=== PATIENT | female | born 1965 | race Caucasian/White ===

== ENCOUNTER → 2016-09-18 | Day surgery (SDC) | payer OTHER ==
[2016-09-12 14:12] VITALS: BMI 44.0
[~2016-09-18] VITALS: Ht 165.1 cm; Wt 121.8 kg
[~2016-09-18] MED LIST: CITA40TA4 PO; CLB100 PO; FERR325T5 PO; FERR325T51 PO; FEXO1TAB46 PO; FLNIN NAE; FLUT0.15 NAE; FURO40TA3 PO; IBUP600T44 PO; INSDGI SC; LEVO100T PO; LIDOCAINE HCL 2% 2 ML VIAL (20MG/ML) ONE; LISI-729 PO; LISI5TAB3 PO; METF1000 PO; NITR0.4S UT; NRN300 PO; NRN600 PO; NVLG SQ; NVLGI SC; OMEP40CA PO; OMEP40CA41 PO; ONDA4TAB10 SL; POTA10CA28 PO; PROPOFOL IV EMULSION 10 MG/ML 20 ML VIAL IV ONE; SIMV10TA2 PO; SODIUM CHLORIDE 0.9% 500ML 500 ML IV ONE; SPIR25TA PO; TYLOTC500 PO
[2016-09-18 09:01] VITALS: Ht 165.1 cm; Wt 121.8 kg
[2016-09-18 09:16] VITALS: TEMP 36.7
--- NOTE | 2016-09-18 09:52 | Endo History and Physical ---
History & Physical Date of Service: Sep 18, 2016. Chief Complaint: SCREENING Referring Physician: DR CABRERA History of Present Illness Screening colonoscopy. Past Medical History Diabetes, Arthritis, Asthma, Reflux, Gynecological Problems, High Cholesterol, Hypertension, Thyroid Disease, Depression Past Surgical History Hx Cardiac Surgery: No Hx Internal Defibrillator: No Hx Pacemaker: No Hx Abdominal Surgery: Yes (UMBILICAL HERNIA REPAIR, D&C, UTERINE ABLATION WITH D&C AND TUBAL LIGATION) Hx of Implantable Prosthesis: No Hx Post-Op Nausea and Vomiting: Yes (SCOPALAMINE PATCHES WORK WELL) Hx Cancer Surgery: No Hx Thoracic Surgery: No Hx Orthopedic: Yes (MASS REMOVAL RT KNEE (BENIGN), RT BIG TOE GROWTH REMOVAL) Hx Urinary Tract Surgery: No Family History Polyp Social History Smoking Status: Never Smoker Hx Substance Use: No Hx Alcohol Use: No Allergies Coded Allergies: Codeine (Unverified Allergy, Mild, FAINTING, DIZZINESS, N/V, FEVER, ) Penicillins (Unverified Allergy, Mild, HAPPENED A CHILD - PT UNSURE REACTION, 09/18/16) - "NO REAL REACTION WITH SMALL DOSES" Sulfa Drugs (Unverified Allergy, Mild, HAPPENED A CHILD - PT UNSURE REACTION, 09/18/16) Morphine (Verified Allergy, Unknown, GI UPSET, FEVER, 09/18/16) Current Medications Reported Home Medications Medications Dose Route/Sig Max Daily Dose Days Date Category Dose Instructions Synthroid (Levothyroxine Sodium) 100 Mcg Tab 100 Mcg PO QAM 09/12/16 Reported Citalopram Hydrobromide 40 Mg Tab 1 Tab PO HS 09/12/16 Reported Gabapentin 300 Mg Cap 900 Mg PO HS 02/01/15 Reported Iron Supplement (Ferrous Sulfate) 325 Mg Tab 2 Tabs PO HS 02/01/15 Reported Novolog (Insulin Aspart) Inj 40-50 Units SC SUPPER 02/01/15 Reported PER SLIDING SCALE Novolog (Insulin Aspart) Inj 5-10 Units SC BREAKFAST 02/01/15 Reported PER SLIDING SCALE Lasix (Furosemide) 40 Mg Tab 40 Mg PO BID 02/01/15 Reported Tylenol (Acetaminophen) 500 Mg Tab 1,000 Mg PO Q6H PRN 03/11/13 Reported Flonase Nasal [place] (Fluticasone Propionate) 120 Sprays/6000 Mcg Inha 2 Sprays RAJENDRA DAILY PRN 9/12/13 Reported Prilosec (Omeprazole) 40 Mg Capcr 40 Mg PO HS 03/11/13 Reported Zocor (Simvastatin) 10 Mg Tab 10 Mg PO HS 03/11/13 Reported Zestril (Lisinopril) 5 Mg Tab 5 Mg PO HS 03/11/13 Reported Nitrostat (Nitroglycerin) 0.4 Mg Sub 0.4 Mg UT PRN 03/11/13 Reported Micro-K Ext Rel (Potassium Chloride) 10 Meq Cap 10 Meq PO QAM 04/02/12 Reported Lantus (Insulin Glargine) Vial 44 Units SC BID 04/02/12 Reported increase by 2 units daily until bsg is 120 Sadia (Fexofenadine Hcl) 180 Mg Tab 180 Mg PO HS 04/02/12 Reported Aldactone (Spironolactone) 25 Mg Tab 25 Mg PO HS 04/02/12 Reported Glucophage (Metformin Hcl) 1,000 Mg Tab 1,000 Mg PO BID 04/02/12 Reported Vital Signs Weight (Kilograms): 121.82 Height (Feet): 5 Height (Inches): 5 Date Time Temp Pulse Resp B/P Pulse Ox O2 Delivery O2 Flow Rate FiO2 09/18/16 09:16 36.7 67 22 156/83 99 Room Air Physical Exam General Appearance: WD/WN, no apparent distress, + obese Respiratory/Chest: Auscultation: breath sounds normal, no wheezing Cardiovascular: Heart Auscultation: RRR, no murmurs Assessment and Plan Cleared for colonoscopy.
--- NOTE | 2016-09-18 10:25 | GI REPORT ---
Procedure Date: 09/18/2016 9:37 AM Procedure: Colonoscopy Indications: Screening for colorectal malignant neoplasm Medicines: Monitored Anesthesia Care Complications: No immediate complications. Estimated blood loss: None. Estimated Blood Loss: Estimated blood loss: none. Procedure: Pre-Anesthesia Assessment: - Prior to the procedure, a History and Physical was performed, and patient medications, allergies and sensitivities were reviewed. The patient's tolerance of previous anesthesia was reviewed. - ASA Grade Assessment: III - A patient with severe systemic disease. After I obtained informed consent, the scope was passed under direct vision. Throughout the procedure, the patient's blood pressure, pulse, and oxygen saturations were monitored continuously. The scope was introduced through the anus and advanced to the cecum, identified by appendiceal orifice and ileocecal valve. The colonoscopy was performed without difficulty. The patient tolerated the procedure well. The quality of the bowel preparation was excellent. The bowel preparation used was split dose MIralax. Findings: The entire examined colon appeared normal. Impression: - The entire examined colon is normal. - No specimens collected. Recommendation: - Repeat colonoscopy in 10 years for screening purposes. - Discharge patient to home (with escort). Sukumar Alvarez M.D. Sukumar Alvarez MD 09/18/2016 10:26:11 AM This report has been signed electronically. Note Initiated On: 09/18/2016 9:37 AM I attest to the content of the Intraoperative Record and orders documented therein, exceptions below
--- NOTE | 2016-09-18 10:27 | Discharge Instructions ---
Endoscopy Patient Instructions Date / Procedure(s) Performed Sep 18, 2016. Colonoscopy Allergy Information Coded Allergies: Codeine (Unverified Allergy, Mild, FAINTING, DIZZINESS, N/V, FEVER, ) Penicillins (Unverified Allergy, Mild, HAPPENED A CHILD - PT UNSURE REACTION, 09/18/16) - "NO REAL REACTION WITH SMALL DOSES" Sulfa Drugs (Unverified Allergy, Mild, HAPPENED A CHILD - PT UNSURE REACTION, 09/18/16) Morphine (Verified Allergy, Unknown, GI UPSET, FEVER, 09/18/16) Discharge Date / Findings Sep 18, 2016. Normal Colonoscopy Medication Instructions Stopped Medication(s): IRON METFORMIN Restart Stopped Medication(s): Restart all medications today Provider Instructions Activity Restrictions - No exercising or heavy lifting for 24 hours. - Do not drink alcohol the day of the procedure. - Do not drive a car or operate machinery until the day after the procedure. - Do not make any important decisions or sign important papers in 24 hours after the procedure. Following Day: - Return to full activity which may include returning to work/school. Diet Start your diet with liquids and light foods (jello, soup, juice, toast). Then eat your usual diet if not nauseated. Treatment For Common After Affects For mild abdominal pain, bloating, or excessive gas: - Rest - Eat lightly - Lie on right side Follow-Up Information Follow-up with DR CABRERA as scheduled Anesthesia Information What You Should Know You have had a procedure that required some medicine to reduce anxiety and discomfort. This treatment is called moderate sedation. After receiving the treatment, you may be sleepy, but you will be able to breathe on your own. The effects of the treatment may last for several hours. Follow these instructions along with Activity/Diet recommendations noted above: * Do NOT do anything where dizziness or clumsiness would be dangerous. * Rest quietly at home today, then you can be up and about tomorrow. * Have a responsible person stay with you the rest of today. * You may have had an I.V. today. If so, you may take the dressing off later today. Recommendations Call your doctor if: * Trouble breathing * Continuous vomiting for more than 24 hours * Temperature above 101 degrees * Severe abdominal pain or bloating * Pain not relieved by pain medicine ordered * There is increased drainage or redness from any incision * A large amount of rectal bleeding greater than 2-3 tablespoons. (If you had a polyp/s removed or have hemorrhoids, a small amount of blood - from the rectum is to be expected.) * You have any unanswered questions or concerns. IN THE EVENT OF A SERIOUS EMERGENCY, GO TO THE NEAREST EMERGENCY ROOM Your discharge instructions were prepared by provider Sukumar Alvarez. Patient Instructions Signature Page Irma Crockett Patient (or Guardian) Signature/Date: I have read and understand the instructions given to me by my caregivers. Caregiver/RN/Doctor Signature/Date: The above-named patient and/or guardian has received patient instructions on this date. + Original Patient Signature Page (only) stays with chart. Please make copy for patient.
[2016-09-18 10:54] VITALS: BP 134/73; PULSE 57; O2SAT 99
--- NOTE | 2016-09-18 15:14 | Anesthesiology Progress Note ---
Anesthesia Post Op Note Date & Time Sep 18, 2016 at 15:14 Vital Signs Pain Intensity: 0 Vital Signs Past 12 Hours Date Time Temp Pulse Resp B/P Pulse Ox O2 Delivery O2 Flow Rate FiO2 09/18/16 10:54 57 20 134/73 99 Room Air 09/18/16 10:39 59 20 113/64 100 Room Air 09/18/16 10:24 62 20 114/67 100 Room Air 09/18/16 09:16 36.7 67 22 156/83 99 Room Air Notes Mental Status: alert / awake / arousable, participated in evaluation Pt Amnestic to Procedure: Yes Nausea / Vomiting: adequately controlled Pain: adequately controlled Airway Patency, RR, SpO2: stable & adequate BP & HR: stable & adequate Hydration State: stable & adequate Anesthetic Complications: no major complications apparent
== END | disposition home or self-care (01) ==
LOC: C.GI 08:20
PROVIDERS: ATTEND Internal Medicine Gastroenterology
DX: Z12.11 Encounter for screening for malignant neoplasm of colon (principal); K21.0 Gastro-esophageal reflux disease with esophagitis; E11.9 Type 2 diabetes mellitus without complications; M19.90 Unspecified osteoarthritis, unspecified site; J45.909 Unspecified asthma, uncomplicated; I10 Essential (primary) hypertension; E78.5 Hyperlipidemia, unspecified; E07.9 Disorder of thyroid, unspecified; F32.9 Major depressive disorder, single episode, unspecified; Z88.0 Allergy status to penicillin; Z88.5 Allergy status to narcotic agent; Z88.2 Allergy status to sulfonamides; Z98.890 Other specified postprocedural states; Z98.51 Tubal ligation status; Z79.4 Long term (current) use of insulin

== ENCOUNTER 2016-10-09 10:05 | Emergency (ER) | payer OTHER ==
[~2016-10-09] VITALS: Ht 165.1 cm; Wt 120.2 kg
[~2016-10-09 10:05] MED LIST changes: -CLB100 PO; -FERR325T5 PO; -FLUT0.15 NAE; -IBUP600T44 PO; -LIDOCAINE HCL 2% 2 ML VIAL (20MG/ML) ONE; -LISI-729 PO; -NRN600 PO; -NVLG SQ; -OMEP40CA41 PO; -ONDA4TAB10 SL; -PROPOFOL IV EMULSION 10 MG/ML 20 ML VIAL IV ONE; -SODIUM CHLORIDE 0.9% 500ML 500 ML IV ONE
[2016-10-09 10:09] VITALS: TEMP 36.5; Ht 165.1 cm; Wt 120.2 kg
[2016-10-09] MEDS ORDERED: SODIUM CHLORIDE 0.9% 1000ML 1,000 ML IV STA (10:23)
[2016-10-09] MEDS ORDERED: ONDANSETRON INJ 2 MG/ML 2 ML VIAL IV STA (10:23)
[2016-10-09] MEDS ORDERED: NVLG SQ ×2 (10:44)
[2016-10-09] MEDS ORDERED: OMEP40CA41 PO (10:44)
[2016-10-09] MEDS ORDERED: INSDGI SC (10:44)
[2016-10-09] MEDS ORDERED: FLUT0.15 NAE (10:44)
[2016-10-09] MEDS ORDERED: FERR325T5 PO (10:44)
[2016-10-09] MEDS ORDERED: LISI-729 PO (10:44)
--- NOTE | 2016-10-09 10:48 | DIAGNOSTIC IMAGING REPORT ---
CHEST ONE VIEW PORTABLE CLINICAL HISTORY: Altered mental status. Weakness. COMPARISON STUDY: Chest radiograph February 01, 2015. FINDINGS: Lung volumes are normal. There is no pneumothorax or pleural effusion. Mild cardiomegaly is noted. There is no evidence of pulmonary edema. Appearance of the chest is unchanged. IMPRESSION: No acute cardiopulmonary findings. Electronically signed by: Wesly Woodson M.D. 10/09/2016 10:46 AM Dictated Date/Time: 10/09/2016 10:41 AM
[2016-10-09 11:31] LABS: URINE APPEARANCE CLOUDY (CLEAR); URINE BILIRUBIN NEG (NEG); URINE COLOR YELLOW; URINE EPITHELIAL CELL AUTO >30 /lpf (0-5); URINE NITRITE NEG (NEG); URINE SPECIFIC GRAVITY 1.026 (1.000-1.030); UROBILINOGEN NEG (NEG); ZZUR CULT IF INDIC CLEAN CATCH YES
[2016-10-09 11:32] LABS: MANUAL MICROSCOPIC REQUIRED? NO; REVIEW REQ? YES
[2016-10-09 11:43] LABS: BASO % 0.2 %; BASO ABS # 0.03 K/uL (0-0.2); COMPLETE YES; HEMATOCRIT 40.9 % (37-47); IG% 0.2 %; LYMPH % 22.6 %; LYMPH ABS # 2.87 K/uL (1.2-3.4); MEAN CELL VOLUME 82.5 fL (80-100); MEAN CORPUSCULAR HEMOGLOBIN 27.8 pg (25-34); MEAN CORPUSCULAR HGB CONC 33.7 g/dl (32-36); MEAN PLATELET VOLUME 9.5 fL (7.4-10.4); MONO % 6.6 %; NEUT % 70.4 %; PLATELET COUNT 319 K/uL (130-400); RED BLOOD COUNT 4.96 M/uL (4.2-5.4); WHITE BLOOD COUNT 12.72 K/uL (4.8-10.8)
[2016-10-09 11:58] LABS: PARTIAL THROMBOPLASTIN RATIO 1.1
[2016-10-09 12:02] LABS: ALT/SGPT 20 U/L (12-78); AST/SGOT 11 U/L (15-37); BLOOD UREA NITROGEN 19 mg/dl (7-18); BUN/CREATININE RATIO 20.1 (10-20); CARBON DIOXIDE 29 mmol/L (21-32); CHLORIDE 105 mmol/L (98-107); CREATININE 0.92 mg/dl (0.60-1.20); GLUCOSE 98 mg/dl (70-99); MAGNESIUM 2.1 mg/dl (1.8-2.4); POTASSIUM 4.1 mmol/L (3.5-5.1); SODIUM 140 mmol/L (136-145)
[2016-10-09 12:11] LABS: ALKALINE PHOSPHATASE 82 U/L (45-117); THYROID STIMULATING HORMONE 0.342 uIu/ml (0.300-4.500)
--- NOTE | 2016-10-09 13:32 | EMERGENCY ROOM VISIT NOTE ---
History Report prepared by Popeye: Irma Dhillon Under the Supervision of: Dr. Stanislav Murry D.O. First contact with patient: 10:19 Chief Complaint: NAUSEA Stated Complaint: NAUSEA, NOT FEELING RIGHT History of Present Illness The patient is a 51 year old female who presents to the Emergency Room with complaints of persistent nausea starting this morning around 0200. She reports feeling "not right". At some point during the night, she went to the bathroom. She believes that she might have blacked out for a short time. When she went back to bed she still felt off. She checked her sugar when she woke up at 0200 and it was 30. She ate some food and went to work. She presents to the ED after continuing to feel off. She has nausea and chest tightness. She was unable to move her bowels at work today. She feels hot and cold and has charley horses in her leg. She denies any cough, rhinorrhea, sore throat, or SOB. She is on thyroid medications. Source of History: patient Onset: 0200 this morning Position: other (global) Quality: other (nausea) Timing: other (persistent) Associated Symptoms: + chest pain, No SOB, No cough, No sorethroat Note: Pt reports feeling off, feeling hot and cold, charley horses. Pt denies rhinorrhea. Review of Systems See HPI for pertinent positives & negatives. A total of 10 systems reviewed and were otherwise negative. Past Medical & Surgical Medical Problems: (1) Diabetes (2) Hypertension (3) Hyperthyroidism Family History Cancer Diabetes mellitus FH: neuropathy Gallbladder disease Heart disease Hypertension Kidney stones Social History Smoking Status: Never Smoker Alcohol Use: none Marital Status: Housing Status: lives with family Occupation Status: employed Current/Historical Medications Scheduled Citalopram Hydrobromide (Citalopram Hydrobromide), 1 TAB PO HS Ferrous Sulfate (Ferrous Sulfate), 2 TABS PO HS Fexofenadine Hcl (Sadia), 180 MG PO HS Furosemide (Lasix), 80 MG PO HS Gabapentin (Gabapentin), 900 MG PO HS Insulin Aspart (Novolog), 5-10 UNITS SQ QDB Insulin Aspart (Novolog), 40-50 UNITS SQ QDD Insulin Glargine (Lantus), 38 UNITS SC BID Levothyroxine Sodium (Synthroid), 100 MCG PO QAM Lisinopril (Zestril), 5 MG PO HS Metformin Hcl (Glucophage), 1,000 MG PO BID Nitroglycerin (Nitrostat), 0.4 MG UT PRN Omeprazole (Prilosec), 40 MG PO HS Potassium Chloride (Micro-K Ext Rel), 10 MEQ PO HS Simvastatin (Zocor), 10 MG PO HS Spironolactone (Aldactone), 25 MG PO HS Scheduled PRN Acetaminophen (Tylenol), 1,000 MG PO Q6H PRN for Pain Fluticasone Propionate (Nasal) (Flonase Allergy Relief), 2 SPRAYS RAJENDRA DAILY PRN for PRN Allergies Coded Allergies: Codeine (Unverified Allergy, Mild, FAINTING, DIZZINESS, N/V, FEVER, ) Penicillins (Unverified Allergy, Mild, HAPPENED A CHILD - PT UNSURE REACTION, 10/09/16) - "NO REAL REACTION WITH SMALL DOSES" Sulfa Drugs (Unverified Allergy, Mild, HAPPENED A CHILD - PT UNSURE REACTION, 10/09/16) Morphine (Verified Allergy, Unknown, GI UPSET, FEVER, 10/09/16) Physical Exam Vital Signs Date Time Temp Pulse Resp B/P Pulse Ox O2 Delivery O2 Flow Rate FiO2 10/09/16 11:50 69 14 108/61 100 Room Air 10/09/16 11:03 68 10/09/16 10:09 36.5 70 18 133/86 94 Room Air Physical Exam CONSTITUTIONAL/VITAL SIGNS: Reviewed / noted above. GENERAL: Non-toxic in appearance. INTEGUMENTARY: Warm, dry, and [place]. HEAD: Normocephalic. EYES: without scleral icterus or trauma. ENT/OROPHARYNX: clear and moist. LYMPHADENOPATHY/NECK: Is supple without lymphadenopathy or meningismus. RESPIRATORY: Lungs clear and equal. CARDIOVASCULAR: Regular rate and rhythm. GI/ABDOMEN: Soft and nontender. No organomegaly or pulsatile mass. No rebound or guarding. Normal bowel sounds. EXTREMITIES: Warm and well perfused. BACK: No CVA tenderness. NEUROLOGICAL: Intact without focal deficits. PSYCHIATRIC: normal affect. MUSCULOSKELETAL: Normally developed with good muscle tone. Medical Decision & Procedures ER Provider Diagnostic Interpretation: X ray results and stated below per my interpretation and radiology interpretation. CHEST ONE VIEW PORTABLE CLINICAL HISTORY: Altered mental status. Weakness. COMPARISON STUDY: Chest radiograph February 01, 2015. FINDINGS: Lung volumes are normal. There is no pneumothorax or pleural effusion. Mild cardiomegaly is noted. There is no evidence of pulmonary edema. Appearance of the chest is unchanged. IMPRESSION: No acute cardiopulmonary findings. Electronically signed by: Wesly Woodson M.D. 10/09/2016 10:46 AM Dictated Date/Time: 10/09/2016 10:41 AM Laboratory Results 10/09/16 11:30 Red Blood Count 4.96, Mean Corpuscular Volume 82.5, Mean Corpuscular Hemoglobin 27.8, Mean Corpuscular Hemoglobin Concent 33.7, Mean Platelet Volume 9.5, Neutrophils (%) (Auto) 70.4, Lymphocytes (%) (Auto) 22.6, Monocytes (%) (Auto) 6.6, Eosinophils (%) (Auto) 0.0, Basophils (%) (Auto) 0.2, Neutrophils # (Auto) 8.95, Lymphocytes # (Auto) 2.87, Monocytes # (Auto) 0.84, Eosinophils # (Auto) 0.00, Basophils # (Auto) 0.03 10/09/16 11:30 Test 10/09/16 11:15 10/09/16 11:30 Urine Color YELLOW Urine Appearance CLOUDY (CLEAR) Urine pH 5.0 (4.5-7.5) Urine Specific [place] 1.026 (1.000-1.030) Urine Protein NEG (NEG) Urine Glucose (UA) NEG (NEG) Urine Ketones NEG (NEG) Urine Occult Blood NEG (NEG) Urine Nitrite NEG (NEG) Urine Bilirubin NEG (NEG) Urine Urobilinogen NEG (NEG) Urine Leukocyte Esterase MODERATE (NEG) Urine WBC (Auto) 10-30 /hpf (0-5) Urine RBC (Auto) 0-4 /hpf (0-4) Urine Hyaline Casts (Auto) 1-5 /lpf (0-5) Urine Epithelial Cells (Auto) >30 /lpf (0-5) Urine Bacteria (Auto) 2+ (NEG) Urine Pathogenic Casts /lpf (0) White Blood Count 12.72 K/uL (4.8-10.8) Red Blood Count 4.96 M/uL (4.2-5.4) Hemoglobin 13.8 g/dL (12.0-16.0) Hematocrit 40.9 % (37-47) Mean Corpuscular Volume 82.5 fL (80-100) Mean Corpuscular Hemoglobin 27.8 pg (25-34) Mean Corpuscular Hemoglobin Concent 33.7 g/dl (32-36) Platelet Count 319 K/uL (130-400) Mean Platelet Volume 9.5 fL (7.4-10.4) Neutrophils (%) (Auto) 70.4 % Lymphocytes (%) (Auto) 22.6 % Monocytes (%) (Auto) 6.6 % Eosinophils (%) (Auto) 0.0 % Basophils (%) (Auto) 0.2 % Neutrophils # (Auto) 8.95 K/uL (1.4-6.5) Lymphocytes # (Auto) 2.87 K/uL (1.2-3.4) Monocytes # (Auto) 0.84 K/uL (0.11-0.59) Eosinophils # (Auto) 0.00 K/uL (0-0.5) Basophils # (Auto) 0.03 K/uL (0-0.2) RDW Standard Deviation 42.7 fL (36.4-46.3) RDW Coefficient of Variation 14.2 % (11.5-14.5) Immature Granulocyte % (Auto) 0.2 % Immature Granulocyte # (Auto) 0.03 K/uL (0.00-0.02) Prothrombin Time 11.0 SECONDS (9.0-12.0) Prothromb Time International Ratio 1.0 (0.9-1.1) Activated Partial Thromboplast Time 29.5 SECONDS (21.0-31.0) Partial Thromboplastin Ratio 1.1 Anion Gap 6.0 mmol/L (3-11) Est Creatinine Clear Calc Drug Dose 95.0 ml/min Estimated GFR () 84.1 Estimated GFR (Non- 72.6 BUN/Creatinine Ratio 20.1 (10-20) Calcium Level 9.0 mg/dl (8.5-10.1) Magnesium Level 2.1 mg/dl (1.8-2.4) Total Bilirubin 0.3 mg/dl (0.2-1) Direct Bilirubin 0.1 mg/dl (0-0.2) Aspartate Amino Transf (AST/SGOT) 11 U/L (15-37) Alanine Aminotransferase (ALT/SGPT) 20 U/L (12-78) Alkaline Phosphatase 82 U/L (45-117) Total Creatine Kinase 213 U/L (26-192) Creatine Kinase MB 2.1 ng/ml (0.5-3.6) Creatine Kinase MB Ratio 1.0 (0-3.0) Troponin I < 0.015 ng/ml (0-0.045) Total Protein 8.1 gm/dl (6.4-8.2) Albumin 3.7 gm/dl (3.4-5.0) Lipase 97 U/L (73-393) Thyroid Stimulating Hormone (TSH) 0.342 uIu/ml (0.300-4.500) Laboratory results as stated above per my review. Medications Administered Medications (Trade) Dose Ordered Sig/Shante Route Start Time Stop Time Status Last Admin Dose Admin Sodium Chloride (Nss 1000ml) 1,000 ml @ 999 mls/hr Q1H1M STAT IV 10/09/16 10:23 10/09/16 11:23 DC 10/09/16 11:11 999 MLS/HR Ondansetron HCl (Zofran Inj) 4 mg NOW STAT IV 10/09/16 10:23 10/09/16 10:25 DC 10/09/16 11:10 4 MG ECG Indication: chest pain Rate (beats per minute): 62 Rhythm: normal sinus Findings: no ectopy, other (no acute injury) ED Course 1019: Previous medical records were reviewed. The patient was evaluated in room B2. A complete history and physical examination was performed. 1023: Zofran Inj 4 mg IV, NSS 1000 ml @ 999 mls/hr IV. 1322: On reevaluation, the patient is resting comfortably. I discussed the results and findings with the patient. She verbalized agreement of the treatment plan. She was discharged home. Medical Decision Differential includes acute coronary syndrome, myocardial infarction, CVA, TIA, anemia, infection, pneumonia, UTI, pyelonephritis, poor nutrition, dehydration, electrolyte disturbance,hypoglycemia. This is a 51-year-old insulin-dependent diabetic female who presents to the ED with a chief complaint of nausea and just not feeling quite right. She states that she awoke this morning to a blood sugar of 30. This was around 2 AM. She states that she ate breakfast and her blood pressure improved. She went to work for about 5 hours and just didn't feel right in addition to her nausea. She came in for evaluation of this. She denies any chest pains or shortness of breath. No headaches. No fevers. No abdominal pains. She did report feeling like she had to move her bowels earlier today but could not. Her vital signs are normal. Her physical exam is normal. Chest x-ray did not show acute disease. CBC is unremarkable. The BUN is 19. Troponin is negative. TSH was normal. Glucose is 98. Urine appears contaminated. The patient was told the results. She was given IV fluids and IV Zofran. She is felt to be stable for discharge and outpatient follow-up. She was told that she would be contacted if her urine reveals infection in a culture. Impression Primary Impression: Malaise Additional Impressions: hypoglyecmic event Nausea Scribe Attestation The scribe's documentation has been prepared under my direction and personally reviewed by me in its entirety. I confirm that the note above accurately reflects all work, treatment, procedures, and medical decision making performed by me. Departure Information Dispostion Home / Self-Care Referrals Dulce Chang M.D. (MEDICAL) (PCP) Patient Instructions My [facility] Additional Instructions You will be contacted if your urine culture reveals an infection. Follow-up with your doctor for further care and evaluation in 1-5 days if symptoms persist. Return to the emergency department for worsening or new symptoms or any concerns. You have been examined and treated today on an emergency basis only. This is not a substitute for, or an effort to provide, complete comprehensive medical care. It is impossible to recognize and treat all injuries or illnesses in a single emergency department visit. It is therefore important that you follow up closely with your doctor. Call as soon as possible for an appointment. Problem Qualifiers
[2016-10-09 13:42] VITALS: BP 125/65; PULSE 76; O2SAT 96
== END 2016-10-09 13:44 | disposition home or self-care (01) ==
LOC: C.EDB 10:08
DX: R53.81 Other malaise (principal); E16.2 Hypoglycemia, unspecified; R11.0 Nausea; E11.9 Type 2 diabetes mellitus without complications; I10 Essential (primary) hypertension; E03.9 Hypothyroidism, unspecified; Z83.3 Family history of diabetes mellitus; Z82.49 Family history of ischemic heart disease and other diseases of the circulatory system; Z79.4 Long term (current) use of insulin

== ENCOUNTER 2017-01-30 14:46 | Emergency (ER) | payer OTHER ==
[~2017-01-30] VITALS: Ht 165.1 cm; Wt 113.3 kg
[~2017-01-30 14:46] MED LIST changes: +FERR325T5 PO; -FERR325T51 PO; -FLNIN NAE; +FLUT0.15 NAE; +LISI-729 PO; -LISI5TAB3 PO; +NVLG SQ; -NVLGI SC; -OMEP40CA PO; +OMEP40CA41 PO
[2017-01-30 14:51] VITALS: TEMP 37; Ht 165.1 cm; Wt 113.3 kg
[2017-01-30] MEDS ORDERED: ONDANSETRON INJ 2 MG/ML 2 ML VIAL IV STA (14:53)
[2017-01-30] MEDS ORDERED: SODIUM CHLORIDE 0.9% 1000ML 1,000 ML IV STA (14:53)
--- NOTE | 2017-01-30 14:57 | EMERGENCY ROOM VISIT NOTE ---
History Report prepared by Popeye: Юлия Saldivar Under the Supervision of: Dr. Sukumar Benavidez D.O. First contact with patient: 14:49 Chief Complaint: DIARRHEA Stated Complaint: DIARRHEA/NAUSEA History of Present Illness The patient is a 51 year old female who presents to the Emergency Room with complaints of intermittent watery diarrhea beginning 4 days ago. The patient states that she has had 4 episodes of diarrhea each day over the last 4 days. She notes that she has not been feeling well today and woke up with a blood sugar of 200. She reports that she has been nauseated and tired and after returning home from work today she called her PCPs office and speaking to the nurse there, she was told to come in to the ED. The patient states that today her stools have been slightly more formed. She notes a history of neuropathy, diabetes, hypertension, acid reflux, umbilical hernia, and a lumpectomy of the breast. She reports that she has had a colonoscopy before that was normal. Source of History: patient Onset: 4 days ago Position: other (global) Symptom Intensity: 4 episodes a day Quality: other (diarrhea) Timing: intermittent Associated Symptoms: + nausea Note: Pt complains of tiredness. Review of Systems See HPI for pertinent positives & negatives. A total of 10 systems reviewed and were otherwise negative. Past Medical & Surgical Medical Problems: (1) Diabetes (2) Hypertension (3) Hyperthyroidism Family History Cancer Diabetes mellitus FH: neuropathy Gallbladder disease Heart disease Hypertension Kidney stones Social History Smoking Status: Never Smoker Alcohol Use: none Marital Status: Housing Status: lives with family Occupation Status: employed Current/Historical Medications Scheduled Celecoxib (Celebrex), 100 MG PO HS Citalopram Hydrobromide (Citalopram Hydrobromide), 1 TAB PO HS Ferrous Sulfate (Ferrous Sulfate), 2 TABS PO HS Fexofenadine Hcl (Sadia), 180 MG PO HS Furosemide (Lasix), 80 MG PO HS Gabapentin (Gabapentin), 900 MG PO HS Insulin Aspart (Novolog), 1 DOSE SQ QPM Insulin Glargine (Lantus), 15 UNITS SC HS Levothyroxine Sodium (Synthroid), 100 MCG PO QAM Lisinopril (Zestril), 5 MG PO HS Metformin Hcl (Glucophage), 1,000 MG PO BID Nitroglycerin (Nitrostat), 0.4 MG UT PRN Omeprazole (Prilosec), 40 MG PO HS Ondasetron Odt (Zofran Odt), 4 MG SL Q6H Potassium Chloride (Micro-K Ext Rel), 10 MEQ PO HS Simvastatin (Zocor), 10 MG PO HS Spironolactone (Aldactone), 25 MG PO HS Scheduled PRN Acetaminophen (Tylenol), 1,000 MG PO Q6H PRN for Pain Fluticasone Propionate (Nasal) (Flonase Allergy Relief), 2 SPRAYS RAJENDRA DAILY PRN for PRN Allergies Coded Allergies: Codeine (Unverified Allergy, Mild, FAINTING, DIZZINESS, N/V, FEVER, 01/30/17 ) Penicillins (Unverified Allergy, Mild, HAPPENED A CHILD - PT UNSURE REACTION, 01/30/17) - "NO REAL REACTION WITH SMALL DOSES" Sulfa Drugs (Unverified Allergy, Mild, HAPPENED A CHILD - PT UNSURE REACTION, 01/30/17) Morphine (Verified Allergy, Unknown, GI UPSET, FEVER, 01/30/17) Physical Exam Vital Signs Date Time Temp Pulse Resp B/P (MAP) Pulse Ox O2 Delivery O2 Flow Rate FiO2 01/30/17 18:49 72 18 131/75 97 Room Air 01/30/17 14:51 37.0 70 20 159/85 95 Room Air Physical Exam GENERAL: Patient is awake, alert, and in no acute distress. Patient is resting comfortably and showing no signs of anxiety EYES: The conjunctivae are clear. The pupils are round and reactive. EARS, NOSE, MOUTH AND THROAT: The nose is without any evidence of any deformity. Mucous membranes are moist tongue is midline NECK: The neck is nontender and supple. RESPIRATORY: Normal respiratory effort is noted there is no evidence of wheezing rhonchi or rales CARDIOVASCULAR: Regular rate and rhythm noted there no murmurs rubs or gallops normal S1 normal S2 GASTROINTESTINAL: The abdomen is soft. Bowel sounds are present in all quadrants. Abdomen is nontender MUSCULOSKELETAL/EXTREMITIES: There is no evidence of gross deformity full range of motion is noted in the hips and shoulders SKIN: There is no obvious evidence of any rash. There are no petechiae, pallor or cyanosis noted. NEUROLOGIC: Patient is awake alert and oriented x3 Medical Decision & Procedures ER Provider Diagnostic Interpretation: X-ray results as stated below per interpretation by me and the radiologist. ABDOMEN 2VIEW W/PA CHEST RTN FINDINGS: The heart is at the upper limits of normal in size. There is mild basilar interstitial thickening. There is no free air. Erect and supine views the abdomen reveal no abnormally dilated loops of large or small bowel. There are multiple pelvic basin calcifications consistent with phleboliths. Bilateral tubal implants are evident. IMPRESSION: No evidence of bowel obstruction. No evidence of free air. Electronically signed by: Stephen Sin M.D. 01/30/2017 4:41 PM Dictated Date/Time: 01/30/2017 4:40 PM Laboratory Results 01/30/17 16:12 Red Blood Count 4.79, Mean Corpuscular Volume 84.1, Mean Corpuscular Hemoglobin 27.3, Mean Corpuscular Hemoglobin Concent 32.5, Mean Platelet Volume 10.0, Neutrophils (%) (Auto) 61.5, Lymphocytes (%) (Auto) 28.7, Monocytes (%) (Auto) 6.5, Eosinophils (%) (Auto) 2.3, Basophils (%) (Auto) 0.7, Neutrophils # (Auto) 6.10, Lymphocytes # (Auto) 2.85, Monocytes # (Auto) 0.65, Eosinophils # (Auto) 0.23, Basophils # (Auto) 0.07 01/30/17 16:12 Test 01/30/17 16:12 White Blood Count 9.93 K/uL (4.8-10.8) Red Blood Count 4.79 M/uL (4.2-5.4) Hemoglobin 13.1 g/dL (12.0-16.0) Hematocrit 40.3 % (37-47) Mean Corpuscular Volume 84.1 fL (80-100) Mean Corpuscular Hemoglobin 27.3 pg (25-34) Mean Corpuscular Hemoglobin Concent 32.5 g/dl (32-36) Platelet Count 278 K/uL (130-400) Mean Platelet Volume 10.0 fL (7.4-10.4) Neutrophils (%) (Auto) 61.5 % Lymphocytes (%) (Auto) 28.7 % Monocytes (%) (Auto) 6.5 % Eosinophils (%) (Auto) 2.3 % Basophils (%) (Auto) 0.7 % Neutrophils # (Auto) 6.10 K/uL (1.4-6.5) Lymphocytes # (Auto) 2.85 K/uL (1.2-3.4) Monocytes # (Auto) 0.65 K/uL (0.11-0.59) Eosinophils # (Auto) 0.23 K/uL (0-0.5) Basophils # (Auto) 0.07 K/uL (0-0.2) RDW Standard Deviation 44.4 fL (36.4-46.3) RDW Coefficient of Variation 14.4 % (11.5-14.5) Immature Granulocyte % (Auto) 0.3 % Immature Granulocyte # (Auto) 0.03 K/uL (0.00-0.02) Prothrombin Time 10.4 SECONDS (9.0-12.0) Prothromb Time International Ratio 1.0 (0.9-1.1) Activated Partial Thromboplast Time 27.6 SECONDS (21.0-31.0) Partial Thromboplastin Ratio 1.1 Anion Gap 6.0 mmol/L (3-11) Est Creatinine Clear Calc Drug Dose 88.0 ml/min Estimated GFR () 79.9 Estimated GFR (Non- 69.0 BUN/Creatinine Ratio 23.8 (10-20) Calcium Level 9.7 mg/dl (8.5-10.1) Magnesium Level 1.8 mg/dl (1.8-2.4) Total Bilirubin 0.3 mg/dl (0.2-1) Direct Bilirubin 0.2 mg/dl (0-0.2) Aspartate Amino Transf (AST/SGOT) 9 U/L (15-37) Alanine Aminotransferase (ALT/SGPT) 17 U/L (12-78) Alkaline Phosphatase 83 U/L (45-117) Total Protein 7.7 gm/dl (6.4-8.2) Albumin 3.7 gm/dl (3.4-5.0) Lipase 132 U/L (73-393) Date/Time Source Procedure Growth Status 01/30/17 15:15 Stool C.difficile Toxin B Gene (PCR) - Final No C. difficile toxin B gene detected Complete Laboratory results per my review. Medications Administered Medications (Trade) Dose Ordered Sig/Shante Route Start Time Stop Time Status Last Admin Dose Admin Sodium Chloride 1,000 ml @ 999 mls/hr Q1H1M STAT IV 01/30/17 14:53 01/30/17 15:53 DC 01/30/17 16:13 999 MLS/HR Ondansetron HCl (Zofran Inj) 4 mg NOW STAT IV 01/30/17 14:53 01/30/17 14:55 DC 01/30/17 16:13 4 MG ED Course 1449: The patient was evaluated in room B4. A complete history and physical examination were performed. 1453: Zofran Inj 4mg IV, NSS 1,000 ml @ 999 mls/hr IV. 1720: I reevaluated and updated the patient. 183: I reevaluated and updated the patient. 1836: Upon reevaluation, the patient is doing well. I discussed the results and treatment plan with the patient. She verbalized agreement of the treatment plan. The patient was discharged home. Medical Decision Differential diagnosis: Etiologies such as appendicitis, diverticulitis, PUD, biliary pathology, UTI, pancreatitis, obstruction, mesenteric ischemia, aortic pathology, infections, inflammatory bowel disease, renal colic, as well as others were entertained. Nursing notes reviewed. The patient is a 51-year-old female who presented to the emergency department for an evaluation of diarrhea. The patient's been having symptoms for the last few days. She called her primary care physician and was told to come to the emergency department. The patient did not have a physical exam consistent with an acute surgical abdomen. The patient was treated with IV fluids and antiemetics in the emergency department. I discussed the patient's laboratory and radiographic studies with her. She was encouraged to drink plenty clear liquids and call her family doctor to schedule a follow-up appointment. She continue all medications as prescribed and return to the emergency apartment immediately if symptoms change worsen or the need arises. Medication Reconcilliation Current Medication List: was personally reviewed by me Blood Pressure Screening Patient's blood pressure: Elevated blood pressure Blood pressure disposition: Elevated BP felt to be situational Impression Primary Impression: Diarrhea Additional Impressions: Dehydration Generalized weakness Scribe Attestation The scribe's documentation has been prepared under my direction and personally reviewed by me in its entirety. I confirm that the note above accurately reflects all work, treatment, procedures, and medical decision making performed by me. Departure Information Dispostion Home / Self-Care Prescriptions Ondasetron Odt (ZOFRAN ODT) 4 Mg Tab 4 MG SL Q6H for Nausea, #15 TAB Prov: Sukumar Benavidez, 01/30/17 Referrals Dulce Chang M.D. (MEDICAL) (PCP) Forms HOME CARE DOCUMENTATION FORM, IMPORTANT VISIT INFORMATION, WORK / SCHOOL INSTRUCTIONS Patient Instructions Diarrhea, My [facility] Additional Instructions Call your family in the morning to schedule a follow-up appointment. Drink plenty clear liquids including Pedialyte and Gatorade. Problem Qualifiers
[2017-01-30 16:23] LABS: BASO % 0.7 %; BASO ABS # 0.07 K/uL (0-0.2); COMPLETE YES; EOS % 2.3 %; HEMATOCRIT 40.3 % (37-47); IG% 0.3 %; LYMPH % 28.7 %; LYMPH ABS # 2.85 K/uL (1.2-3.4); MEAN CELL VOLUME 84.1 fL (80-100); MEAN CORPUSCULAR HEMOGLOBIN 27.3 pg (25-34); MEAN CORPUSCULAR HGB CONC 32.5 g/dl (32-36); MONO % 6.5 %; NEUT % 61.5 %; PLATELET COUNT 278 K/uL (130-400); RED BLOOD COUNT 4.79 M/uL (4.2-5.4); WHITE BLOOD COUNT 9.93 K/uL (4.8-10.8)
[2017-01-30 16:32] LABS: PARTIAL THROMBOPLASTIN RATIO 1.1; PROTHROMBIN TIME (PATIENT) 10.4 SECONDS (9.0-12.0)
--- NOTE | 2017-01-30 16:42 | DIAGNOSTIC IMAGING REPORT ---
ABDOMEN 2VIEW W/PA CHEST RTN CLINICAL HISTORY: Abdominal pain, diarrhea, nausea. COMPARISON STUDY: 10/09/2016 FINDINGS: The heart is at the upper limits of normal in size. There is mild basilar interstitial thickening. There is no free air. Erect and supine views the abdomen reveal no abnormally dilated loops of large or small bowel. There are multiple pelvic basin calcifications consistent with phleboliths. Bilateral tubal implants are evident. IMPRESSION: No evidence of bowel obstruction. No evidence of free air. Electronically signed by: Stephen Sin M.D. 01/30/2017 4:41 PM Dictated Date/Time: 01/30/2017 4:40 PM
[2017-01-30 16:43] LABS: BUN/CREATININE RATIO 23.8 (10-20); CALCIUM 9.7 mg/dl (8.5-10.1); CREATININE 0.96 mg/dl (0.60-1.20); MAGNESIUM 1.8 mg/dl (1.8-2.4); POTASSIUM 3.8 mmol/L (3.5-5.1)
[2017-01-30] MEDS ORDERED: CLB100 PO (16:55)
[2017-01-30] MEDS ORDERED: ONDA4TAB10 SL (18:34)
[2017-01-30 18:49] VITALS: BP 131/75; PULSE 72; O2SAT 97
== END 2017-01-30 18:55 | disposition home or self-care (01) ==
LOC: EDBD 14:46 → C.EDB 14:49
DX: R19.7 Diarrhea, unspecified (principal); E86.0 Dehydration; R53.1 Weakness; E11.40 Type 2 diabetes mellitus with diabetic neuropathy, unspecified; I10 Essential (primary) hypertension; E05.90 Thyrotoxicosis, unspecified without thyrotoxic crisis or storm; Z80.9 Family history of malignant neoplasm, unspecified; Z83.3 Family history of diabetes mellitus; Z83.79 Family history of other diseases of the digestive system; Z82.49 Family history of ischemic heart disease and other diseases of the circulatory system; Z84.1 Family history of disorders of kidney and ureter; Z79.4 Long term (current) use of insulin; Z79.899 Other long term (current) drug therapy

== ENCOUNTER 2017-03-13 08:10 | Emergency (ER) | payer OTHER ==
[~2017-03-13] VITALS: Ht 160 cm; Wt 116.7 kg
[~2017-03-13 08:10] MED LIST changes: +CLB100 PO; +ONDA4TAB10 SL
[2017-03-13 08:23] VITALS: TEMP 36.7; Ht 160 cm; Wt 116.7 kg
[2017-03-13] MEDS ORDERED: ONDANSETRON INJ 2 MG/ML 2 ML VIAL IV STA (08:42)
[2017-03-13] MEDS ORDERED: SODIUM CHLORIDE 0.9% 500ML 500 ML IV STA (08:42)
[2017-03-13 09:08] LABS: BASO % 0.4 %; BASO ABS # 0.05 K/uL (0-0.2); COMPLETE YES; EOS % 2.1 %; HEMATOCRIT 37.3 % (37-47); IG% 0.6 %; LYMPH % 18.4 %; LYMPH ABS # 2.15 K/uL (1.2-3.4); MEAN CORPUSCULAR HEMOGLOBIN 28.2 pg (25-34); MEAN CORPUSCULAR HGB CONC 33.2 g/dl (32-36); MEAN PLATELET VOLUME 9.5 fL (7.4-10.4); MONO % 5.7 %; NEUT % 72.8 %; PLATELET COUNT 245 K/uL (130-400); RED BLOOD COUNT 4.39 M/uL (4.2-5.4); WHITE BLOOD COUNT 11.66 K/uL (4.8-10.8)
--- NOTE | 2017-03-13 09:21 | DIAGNOSTIC IMAGING REPORT ---
CHEST ONE VIEW PORTABLE CLINICAL HISTORY: 51 years-old Female presenting with WEAKNESS, FALL W/ LOC. TECHNIQUE: Portable upright AP view of the chest was obtained. COMPARISON: 01/30/2017. FINDINGS: Atherosclerosis of aortic arch. Cardiac silhouette within normal limits. Lungs and pleural spaces clear. Osseous structures normal. Upper abdomen normal. IMPRESSION: 1. No acute cardiopulmonary disease. Electronically signed by: Rafa Henderson M.D. 03/13/2017 9:20 AM Dictated Date/Time: 03/13/2017 9:19 AM
--- NOTE | 2017-03-13 09:25 | DIAGNOSTIC IMAGING REPORT ---
RIGHT WRIST MIN 3 VIEWS ROUTINE CLINICAL HISTORY: 51 years-old Female presenting with RIGHT WRIST PAIN S/P FALL Right. TECHNIQUE: Frontal, oblique, and lateral views of the right wrist were obtained. COMPARISON: None. FINDINGS: Comminuted intra-articular fracture of the distal radius. Mild displacement of the dorsal rim. No apparent disruption of the distal radial ulnar joint. No ulnar fracture. Subtle irregular radiolucency in the scaphoid is noted only on a single projection, which is indeterminate. The radiocarpal articulations are grossly intact without evidence of subluxation. IMPRESSION: Comminuted intra-articular fracture of the distal radius with mild displacement of the dorsal rim. No subluxation of the carpus. Questionable radiolucency through the scaphoid, which is only seen on one projection and indeterminate. If there is point tenderness in this region, dedicated radiographs of the scaphoid recommended. Electronically signed by: Rafa Henderson M.D. 03/13/2017 9:23 AM Dictated Date/Time: 03/13/2017 9:20 AM
[2017-03-13 09:28] LABS: BUN/CREATININE RATIO 26.8 (10-20); CALCIUM 9.3 mg/dl (8.5-10.1); CREATININE 0.78 mg/dl (0.60-1.20); POTASSIUM 4.3 mmol/L (3.5-5.1)
--- NOTE | 2017-03-13 09:35 | DIAGNOSTIC IMAGING REPORT ---
CT OF THE HEAD WITHOUT CONTRAST CLINICAL HISTORY: POSSIBLE CHI FROM FALL, +LOC. COMPARISON STUDY: Head CT April 02, 2012. CT DOSE: 878.49 mGy.cm TECHNIQUE: Helical axial images of the head were obtained without IV contrast. Automated exposure control was utilized for the study. A dose lowering technique was utilized adhering to the principles of ALARA. FINDINGS: No acute intracranial hemorrhage, midline shift or mass effect is present. Ventricular system is normal. Basilar cisterns are patent. There are no extra-axial collections. Mccrary-white differentiation is maintained. There is no calvarial fracture. There is mild mucosal thickening of the right sphenoid sinus. IMPRESSION: 1. No acute intracranial findings. 2. No calvarial fracture. 3. Mild right sphenoid sinus mucosal thickening. Electronically signed by: Wesly Woodson M.D. 03/13/2017 9:33 AM Dictated Date/Time: 03/13/2017 9:25 AM
[2017-03-13 09:38] LABS: THYROID STIMULATING HORMONE 6.73 uIu/ml (0.300-4.500)
[2017-03-13] MEDS ORDERED: NRN600 PO (09:41)
[2017-03-13] MEDS ORDERED: IBUP600T44 PO (09:55)
[2017-03-13 10:28] VITALS: BP 119/67; PULSE 71; O2SAT 100
--- NOTE | 2017-03-13 15:40 | EMERGENCY ROOM VISIT NOTE ---
History First contact with patient: 08:19 Chief Complaint: FALL Stated Complaint: FALL WRIST PAIN/SYNCOPE History of Present Illness The patient is a 51 year old female who presents to the Emergency Room with complaints of right wrist pain after she fell at work this morning. The patient reports that she was walking across a wet floor and slipped, falling to the ground. She does not recall hitting her head. The patient reports that after she fell, she had significant wrist pain. The patient then had a syncopal episode after becoming nauseated. Since her fall, the patient reports tremendous fatigue and nausea. She denies any headache, neck pain, back pain or other injuries from her fall. The patient is a diabetic, and reports that her blood glucose levels are usually normal. Her last hemoglobin A1c was 6.1. She currently rates her wrist discomfort an 8 out of 10. The patient is right- hand-dominant. Review of Systems HEENT: Denies dizziness, visual problems, hearing loss, tinnitus. Denies difficulty swallowing or oral lesions. PULMONARY: Denies cough, shortness of breath, sputum production or hemoptysis. CARDIOVASCULAR: Denies chest pain, palpitations, dyspnea on exertion, orthopnea or peripheral edema. GASTROINTESTINAL: Denies diarrhea, constipation, nausea, vomiting, or abdominal pain. GENITOURINARY: Denies dysuria, frequency, urgency or nocturia. NEUROLOGIC: Denies history of epilepsy, CVA, TIA or chronic headaches. MUSCULOSKELETAL: Denies history of joint tenderness/swelling. SKIN: Denies rashes or lesions. PSYCHIATRIC: Denies history of depression or mental illness. ENDOCRINE: History of diabetes and thyroid disease. Past Medical/Surgical History Medical Problems: (1) Diabetes (2) Hypertension (3) Hyperthyroidism Family History Cancer Diabetes mellitus FH: neuropathy Gallbladder disease Heart disease Hypertension Kidney stones Social History Smoking Status: Never Smoker Alcohol Use: none Marital Status: Housing Status: lives with family Occupation Status: employed Current/Historical Medications Scheduled Celecoxib (Celebrex), 100 MG PO HS Citalopram Hydrobromide (Citalopram Hydrobromide), 1 TAB PO HS Ferrous Sulfate (Ferrous Sulfate), 2 TABS PO HS Fexofenadine Hcl (Sadia), 180 MG PO HS Furosemide (Lasix), 80 MG PO HS Gabapentin (Gabapentin), 600 MG PO HS Insulin Aspart (Novolog), 1 DOSE SQ QPM Insulin Glargine (Lantus), 15 UNITS SC HS Levothyroxine Sodium (Synthroid), 100 MCG PO QAM Lisinopril (Zestril), 5 MG PO HS Metformin Hcl (Glucophage), 1,000 MG PO BID Nitroglycerin (Nitrostat), 0.4 MG UT PRN Omeprazole (Prilosec), 40 MG PO HS Ondasetron Odt (Zofran Odt), 4 MG SL Q6H Potassium Chloride (Micro-K Ext Rel), 10 MEQ PO HS Simvastatin (Zocor), 10 MG PO HS Spironolactone (Aldactone), 25 MG PO HS Scheduled PRN Acetaminophen (Tylenol), 1,000 MG PO Q6H PRN for Pain Fluticasone Propionate (Nasal) (Flonase Allergy Relief), 2 SPRAYS RAJENDRA DAILY PRN for PRN Ibuprofen (Motrin), 600 MG PO Q6H PRN for Pain Physical Exam Vital Signs Date Time Temp Pulse Resp B/P (MAP) Pulse Ox O2 Delivery O2 Flow Rate FiO2 03/13/17 10:28 71 16 119/67 100 Room Air 03/13/17 08:26 71 123/71 77 127/73 80 125/72 03/13/17 08:25 71 03/13/17 08:23 36.7 74 18 127/65 97 Room Air Pain Rating (0-10): 2.0 Physical Exam CONSTITUTIONAL: Obese female, alert and oriented X 3 with positive affect. The patient appears in moderate discomfort from pain. She appears somewhat sedate, but does engage in conversation. HEENT: Normocephalic, atraumatic. Pupils equal, round and reactive. No hemotympanum, epistaxis, subconjunctival hemorrhage, raccoon's eyes or Bonilla sign. NECK: Full active range of motion without discomfort. RESPIRATORY: Clear to auscultation bilaterally with no wheezing, crackles, rhonchi or stridor. CARDIOVASCULAR: Regular rate and rhythm with no murmurs, rubs or gallops. GASTROINTESTINAL: Bowel sounds present in all quadrants. Abdomen is soft and nontender to palpation. MUSCULOSKELETAL: Examination shows tenderness to palpation over the right distal radius region. She has no tenderness to palpation through the forearm or elbow region. Any range of motion of the wrist worsens her discomfort. Remaining musculoskeletal exam was performed and was normal. INTEGUMENTARY: No rash or other significant dermatologic conditions noted. HEMATOLOGIC: No ecchymosis or petechiae noted. NEUROLOGIC: Cranial nerves II-XII grossly intact. No focal neurologic deficits noted. Medical Decision & Procedures ER Provider Diagnostic Interpretation: My interpretation of an ECG shows a normal sinus rhythm of [address] elevation or other conduction abnormalities. My interpretation of a chest x-ray does not show any consolidations, pneumothorax or cardiomegaly. Radiologist report is as follows: CHEST ONE VIEW PORTABLE CLINICAL HISTORY: 51 years-old Female presenting with WEAKNESS, FALL W/ LOC. TECHNIQUE: Portable upright AP view of the chest was obtained. COMPARISON: 01/30/2017. FINDINGS: Atherosclerosis of aortic arch. Cardiac silhouette within normal limits. Lungs and pleural spaces clear. Osseous structures normal. Upper abdomen normal. IMPRESSION: 1. No acute cardiopulmonary disease. My interpretation of a right wrist x-ray shows a comminuted intra-articular fracture of the distal radius. Radiologist report is as follows: RIGHT WRIST MIN 3 VIEWS ROUTINE CLINICAL HISTORY: 51 years-old Female presenting with RIGHT WRIST PAIN S/P FALL Right. TECHNIQUE: Frontal, oblique, and lateral views of the right wrist were obtained. COMPARISON: None. FINDINGS: Comminuted intra-articular fracture of the distal radius. Mild displacement of the dorsal rim. No apparent disruption of the distal radial ulnar joint. No ulnar fracture. Subtle irregular radiolucency in the scaphoid is noted only on a single projection, which is indeterminate. The radiocarpal articulations are grossly intact without evidence of subluxation. IMPRESSION: Comminuted intra-articular fracture of the distal radius with mild displacement of the dorsal rim. No subluxation of the carpus. Questionable radiolucency through the scaphoid, which is only seen on one projection and indeterminate. If there is point tenderness in this region, dedicated radiographs of the scaphoid recommended. Noncontrast CT of the head does not show any intracranial bleed or other acute findings. Radiologist report is as follows: CT OF THE HEAD WITHOUT CONTRAST CLINICAL HISTORY: POSSIBLE CHI FROM FALL, +LOC. COMPARISON STUDY: Head CT April 02, 2012. CT DOSE: 878.49 mGy.cm TECHNIQUE: Helical axial images of the head were obtained without IV contrast. Automated exposure control was utilized for the study. A dose lowering technique was utilized adhering to the principles of ALARA. FINDINGS: No acute intracranial hemorrhage, midline shift or mass effect is present. Ventricular system is normal. Basilar cisterns are patent. There are no extra-axial collections. Mccrary-white differentiation is maintained. There is no calvarial fracture. There is mild mucosal thickening of the right sphenoid sinus. IMPRESSION: 1. No acute intracranial findings. 2. No calvarial fracture. 3. Mild right sphenoid sinus mucosal thickening. Laboratory Results 03/13/17 08:55 Red Blood Count 4.39, Mean Corpuscular Volume 85.0, Mean Corpuscular Hemoglobin 28.2, Mean Corpuscular Hemoglobin Concent 33.2, Mean Platelet Volume 9.5, Neutrophils (%) (Auto) 72.8, Lymphocytes (%) (Auto) 18.4, Monocytes (%) (Auto) 5.7, Eosinophils (%) (Auto) 2.1, Basophils (%) (Auto) 0.4, Neutrophils # (Auto) 8.48, Lymphocytes # (Auto) 2.15, Monocytes # (Auto) 0.66, Eosinophils # (Auto) 0.25, Basophils # (Auto) 0.05 03/13/17 08:55 Test 03/13/17 08:18 03/13/17 08:55 Bedside Glucose 199 mg/dl (70-90) White Blood Count 11.66 K/uL (4.8-10.8) Red Blood Count 4.39 M/uL (4.2-5.4) Hemoglobin 12.4 g/dL (12.0-16.0) Hematocrit 37.3 % (37-47) Mean Corpuscular Volume 85.0 fL (80-100) Mean Corpuscular Hemoglobin 28.2 pg (25-34) Mean Corpuscular Hemoglobin Concent 33.2 g/dl (32-36) Platelet Count 245 K/uL (130-400) Mean Platelet Volume 9.5 fL (7.4-10.4) Neutrophils (%) (Auto) 72.8 % Lymphocytes (%) (Auto) 18.4 % Monocytes (%) (Auto) 5.7 % Eosinophils (%) (Auto) 2.1 % Basophils (%) (Auto) 0.4 % Neutrophils # (Auto) 8.48 K/uL (1.4-6.5) Lymphocytes # (Auto) 2.15 K/uL (1.2-3.4) Monocytes # (Auto) 0.66 K/uL (0.11-0.59) Eosinophils # (Auto) 0.25 K/uL (0-0.5) Basophils # (Auto) 0.05 K/uL (0-0.2) RDW Standard Deviation 43.9 fL (36.4-46.3) RDW Coefficient of Variation 14.0 % (11.5-14.5) Immature Granulocyte % (Auto) 0.6 % Immature Granulocyte # (Auto) 0.07 K/uL (0.00-0.02) Anion Gap 6.0 mmol/L (3-11) Est Creatinine Clear Calc Drug Dose 106.4 ml/min Estimated GFR () 102.7 Estimated GFR (Non- 88.6 BUN/Creatinine Ratio 26.8 (10-20) Calcium Level 9.3 mg/dl (8.5-10.1) Thyroid Stimulating Hormone (TSH) 6.730 uIu/ml (0.300-4.500) Free Thyroxine 0.80 ng/dl (0.80-1.60) Free Triiodothyronine 2.28 pg/ml (2.30-4.20) The above labs were reviewed. White count is mildly elevated, likely secondary to stress. Glucose is 191. TSH is elevated. Free T3 and T4 were pending at the time of patient discharge. Medications Administered Medications (Trade) Dose Ordered Sig/Shante Route Start Time Stop Time Status Last Admin Dose Admin Ondansetron HCl (Zofran Inj) 4 mg NOW STAT IV 03/13/17 08:42 03/13/17 08:45 DC 03/13/17 08:51 4 MG Sodium Chloride 500 ml @ 999 mls/hr Q31M STAT IV 03/13/17 08:42 03/13/17 09:12 DC 03/13/17 08:51 999 MLS/HR ED Course Patient history and physical exam were performed. Nurse's notes were reviewed. Vital signs were reviewed and were normal. IV access was established, and labs were drawn. The patient refused any analgesics. She was administered Zofran 4 mg IVP for nausea. ECG, portable chest x-ray and head CT were normal. X-rays of the right wrist confirms a comminuted and intra-articular distal radius fracture. A volar Ortho-Glass splint was applied. Neurovascular check after splint placement was normal. The patient was encouraged to follow-up with her Worker's Compensation approved orthopedic surgeon for further reevaluation and management. She was encouraged intermittently apply ice and elevate the wrist for swelling and pain. Ibuprofen or Tylenol if needed for additional pain relief. She refused any prescription analgesics, was happy with plan of care, and rated her discomfort a 3 out of 10 at the time of discharge. I also encouraged the patient to follow-up with her PCP for further reevaluation of her elevated thyroid stimulating hormone level. Medical Decision Impression Primary Impression: Closed fracture of right distal radius Additional Impressions: Fall from slipping on wet surface Work related injury Abnormal thyroid stimulating hormone (TSH) level Departure Information Dispostion Home / Self-Care Prescriptions Ibuprofen (Motrin) 600 Mg Tab 600 MG PO Q6H Y for Pain, #20 TAB For Initial Treatment Prov: Heriberto Diallo PA 03/13/17 Forms HOME CARE DOCUMENTATION FORM, IMPORTANT VISIT INFORMATION Patient Instructions My [facility] [employer] Additional Instructions Ice and elevate arm for swelling and pain. Ibuprofen 800 mg and/or Tylenol 1000 mg every 8 hours. You may also alternate these medications for more effective pain relief: Ibuprofen --4 HRS--> Tylenol --4 HRS--> ibuprofen --4 HRS--> Tylenol .... Keep splint dry. Follow-up with your Worker's Compensation approved orthopedic surgeon for further evaluation and treatment - call for appointment. Your thyroid function (TSH) is abnormal. Follow-up with your family doctor for further recheck. Problem Qualifiers Primary Impression: Closed fracture of right distal radius Encounter type: initial encounter Fracture morphology: unspecified fracture morphology Qualified Codes: S52.501A - Unspecified fracture of the lower end of right radius, initial encounter for closed fracture Additional Impressions: Fall from slipping on wet surface Encounter type: initial encounter Qualified Codes: W01.0XXA - Fall on same level from slipping, tripping and stumbling without subsequent striking against object, initial encounter
== END 2017-03-13 10:44 | disposition home or self-care (01) ==
LOC: EDBD 08:10 → C.EDB 08:11
DX: S52.501A Unspecified fracture of the lower end of right radius, initial encounter for closed fracture (principal); W01.0XXA Fall on same level from slipping, tripping and stumbling without subsequent striking against object, initial encounter; Y92.89 Other specified places as the place of occurrence of the external cause; Y99.0 Civilian activity done for income or pay; R94.6 Abnormal results of thyroid function studies; E11.9 Type 2 diabetes mellitus without complications; I10 Essential (primary) hypertension; E05.90 Thyrotoxicosis, unspecified without thyrotoxic crisis or storm; Z80.9 Family history of malignant neoplasm, unspecified; Z83.3 Family history of diabetes mellitus; Z83.79 Family history of other diseases of the digestive system; Z82.49 Family history of ischemic heart disease and other diseases of the circulatory system; Z84.1 Family history of disorders of kidney and ureter; Z79.4 Long term (current) use of insulin; Z79.899 Other long term (current) drug therapy

== ENCOUNTER → 2017-03-20 | Outpatient (CLI) | payer OTHER ==
[~2017-03-20] MED LIST changes: +IBUP600T44 PO; -NRN300 PO; +NRN600 PO
== END | disposition home or self-care (01) ==
LOC: C.RDSM 13:00
PROVIDERS: ATTEND Orthopaedic Surgery Sports Medicine
DX: Z09 Encounter for follow-up examination after completed treatment for conditions other than malignant neoplasm (principal); M25.531 Pain in right wrist

== ENCOUNTER → 2017-03-21 | Outpatient (CLI) | payer OTHER ==
--- NOTE | 2017-03-21 07:51 | DIAGNOSTIC IMAGING REPORT ---
CT RIGHT WRIST NO CONTRAST CT DOSE: 122.06 mGy.cm CLINICAL HISTORY: Distal radial fracture TECHNIQUE: Helical images were acquired in the sagittal plane. Axial and coronal reformatted images were acquired. A three-dimensional reconstruction was also reconstructed. A dose lowering technique was utilized adhering to the principles of ALARA. COMPARISON STUDY: Conventional radiographic study dated 03/20/2017 FINDINGS: There is a comminuted intra-articular fracture of the distal radius demonstrating 3 mm of maximal distraction. No ulnar fractures are visualized. No abnormalities of the distal radial ulnar joint are visualized on CT scanning. No carpal bone fractures are visualized. IMPRESSION: Comminuted intra-articular fracture of the distal radius demonstrating 3 mm of maximal distraction. Electronically signed by: Stephen Sin M.D. 03/21/2017 7:50 AM Dictated Date/Time: 03/21/2017 7:43 AM
== END | disposition home or self-care (01) ==
LOC: C.CTS 07:10
PROVIDERS: ATTEND Orthopaedic Surgery Sports Medicine
DX: Z09 Encounter for follow-up examination after completed treatment for conditions other than malignant neoplasm (principal); S52.501D Unspecified fracture of the lower end of right radius, subsequent encounter for closed fracture with routine healing; X58.XXXD Exposure to other specified factors, subsequent encounter

== ENCOUNTER → 2017-04-23 | Outpatient (CLI) | payer OTHER | END | disposition home or self-care (01) | LOC: C.RDSM 14:47 | PROVIDERS: ATTEND Orthopaedic Surgery Sports Medicine | DX: S52.571D Other intraarticular fracture of lower end of right radius, subsequent encounter for closed fracture with routine healing (principal); X58.XXXD Exposure to other specified factors, subsequent encounter ==

== ENCOUNTER 2017-05-13 09:09 | Inpatient (IN) | payer OTHER ==
[~2017-05-13] VITALS: Ht 165.1 cm; Wt 112.4 kg
--- NOTE | 2017-05-13 10:09 | EMERGENCY ROOM VISIT NOTE ---
History Report prepared by Popeye: Bianca Nye Under the Supervision of: Dr. Stanislav Murry D.O. First contact with patient: 09:39 Chief Complaint: MENTAL HEALTH EVALUATION Stated Complaint: DEPRESSION, TIRED ALL THE TIME, CRYING A LOT History of Present Illness The patient is a 51 year old female who presents to the Emergency Room for a mental health evaluation. The patient states that she has been feeling more depressed lately. These symptoms have been going on for the past few months but over the last 3-4 days they have gotten much worse. The patient states that she has been sleeping 12-14 hours per day. She admits to "binge eating" and "crying all the time." She does not think that there is anything specific that has made her depression worse, she states that it is "just a lot of life things. I feel like I'm hopeless and I'm so lonely." The patient lives alone. She does not see her family. She broke her arm in February and has been unable to work since that time. The patient states that last night she sent a message to someone saying that she wanted to take more of her medications than she is supposed to. She denies taking any extra medications. She is willing to be inpatient at this time. She has never been inpatient for mental health before. Source of History: patient Onset: a few months ago Position: other (mental health) Quality: other (depression) Timing: worsening Modifying Factors (Worsening): other (life stress) Note: Pt has thoughts of overdosing on medications. Review of Systems See HPI for pertinent positives & negatives. A total of 10 systems reviewed and were otherwise negative. Past Medical & Surgical Medical Problems: (1) Diabetes (2) Hypertension (3) Hyperthyroidism Family History Cancer Diabetes mellitus FH: neuropathy Gallbladder disease Heart disease Hypertension Kidney stones Social History Smoking Status: Never Smoker Alcohol Use: none Marital Status: Housing Status: lives with family Occupation Status: employed Current/Historical Medications Scheduled Citalopram Hydrobromide (Citalopram Hydrobromide), 1 TAB PO HS Ferrous Sulfate (Ferrous Sulfate), 2 TABS PO HS Fexofenadine Hcl (Sadia), 180 MG PO HS Furosemide (Lasix), 80 MG PO HS Gabapentin (Gabapentin), 600 MG PO HS Insulin Aspart (Novolog), 1 DOSE SQ QPM Insulin Glargine (Lantus), 15 UNITS SC HS Levothyroxine Sodium (Synthroid), 100 MCG PO QAM Lisinopril (Zestril), 5 MG PO HS Metformin Hcl (Glucophage), 1,000 MG PO BID Nitroglycerin (Nitrostat), 0.4 MG UT PRN Ondasetron Odt (Zofran Odt), 4 MG SL Q6H Potassium Chloride (Micro-K Ext Rel), 10 MEQ PO HS Simvastatin (Zocor), 10 MG PO HS Spironolactone (Aldactone), 25 MG PO HS Scheduled PRN Acetaminophen (Tylenol), 1,000 MG PO Q6H PRN for Pain Fluticasone Propionate (Nasal) (Flonase Allergy Relief), 2 SPRAYS RAJENDRA DAILY PRN for PRN Ibuprofen (Motrin), 600 MG PO Q6H PRN for Pain Allergies Coded Allergies: Codeine (Unverified Allergy, Mild, FAINTING, DIZZINESS, N/V, FEVER, ) Penicillins (Unverified Allergy, Mild, HAPPENED A CHILD - PT UNSURE REACTION, 05/13/17) - "NO REAL REACTION WITH SMALL DOSES" Sulfa Drugs (Unverified Allergy, Mild, HAPPENED A CHILD - PT UNSURE REACTION, 05/13/17) Morphine (Verified Allergy, Unknown, GI UPSET, FEVER, 05/13/17) Physical Exam Vital Signs Date Time Temp Pulse Resp B/P (MAP) Pulse Ox O2 Delivery O2 Flow Rate FiO2 05/13/17 09:22 36.5 68 20 127/55 98 Room Air Physical Exam CONSTITUTIONAL/VITAL SIGNS: Reviewed / noted above. GENERAL: Non-toxic in appearance. INTEGUMENTARY: Warm, dry, and [place]. HEAD: Normocephalic. EYES: without scleral icterus or trauma. ENT/OROPHARYNX: clear and moist. LYMPHADENOPATHY/NECK: Is supple without lymphadenopathy or meningismus. RESPIRATORY: Lungs clear and equal. CARDIOVASCULAR: Regular rate and rhythm. GI/ABDOMEN: Soft and nontender. No organomegaly or pulsatile mass. No rebound or guarding. Normal bowel sounds. EXTREMITIES: Warm and well perfused. BACK: No CVA tenderness. NEUROLOGICAL: Intact without focal deficits. PSYCHIATRIC: Depressed affect. MUSCULOSKELETAL: Normally developed with good muscle tone. Medical Decision & Procedures Laboratory Results 05/13/17 10:14 Red Blood Count 4.95, Mean Corpuscular Volume 84.6, Mean Corpuscular Hemoglobin 28.9, Mean Corpuscular Hemoglobin Concent 34.1, Mean Platelet Volume 9.4, Neutrophils (%) (Auto) 69.9, Lymphocytes (%) (Auto) 22.1, Monocytes (%) (Auto) 5.2, Eosinophils (%) (Auto) 1.8, Basophils (%) (Auto) 0.6, Neutrophils # (Auto) 7.86, Lymphocytes # (Auto) 2.49, Monocytes # (Auto) 0.59, Eosinophils # (Auto) 0.20, Basophils # (Auto) 0.07 05/13/17 10:14 Test 05/13/17 10:14 05/13/17 10:15 White Blood Count 11.25 K/uL (4.8-10.8) Red Blood Count 4.95 M/uL (4.2-5.4) Hemoglobin 14.3 g/dL (12.0-16.0) Hematocrit 41.9 % (37-47) Mean Corpuscular Volume 84.6 fL (80-100) Mean Corpuscular Hemoglobin 28.9 pg (25-34) Mean Corpuscular Hemoglobin Concent 34.1 g/dl (32-36) Platelet Count 311 K/uL (130-400) Mean Platelet Volume 9.4 fL (7.4-10.4) Neutrophils (%) (Auto) 69.9 % Lymphocytes (%) (Auto) 22.1 % Monocytes (%) (Auto) 5.2 % Eosinophils (%) (Auto) 1.8 % Basophils (%) (Auto) 0.6 % Neutrophils # (Auto) 7.86 K/uL (1.4-6.5) Lymphocytes # (Auto) 2.49 K/uL (1.2-3.4) Monocytes # (Auto) 0.59 K/uL (0.11-0.59) Eosinophils # (Auto) 0.20 K/uL (0-0.5) Basophils # (Auto) 0.07 K/uL (0-0.2) RDW Standard Deviation 41.1 fL (36.4-46.3) RDW Coefficient of Variation 13.6 % (11.5-14.5) Immature Granulocyte % (Auto) 0.4 % Immature Granulocyte # (Auto) 0.04 K/uL (0.00-0.02) Anion Gap 9.0 mmol/L (3-11) Est Creatinine Clear Calc Drug Dose 85.0 ml/min Estimated GFR () 77.0 Estimated GFR (Non- 66.4 BUN/Creatinine Ratio 13.6 (10-20) Calcium Level 9.7 mg/dl (8.5-10.1) Total Bilirubin 0.4 mg/dl (0.2-1) Aspartate Amino Transf (AST/SGOT) 19 U/L (15-37) Alanine Aminotransferase (ALT/SGPT) 28 U/L (12-78) Alkaline Phosphatase 105 U/L (45-117) Total Protein 8.0 gm/dl (6.4-8.2) Albumin 3.8 gm/dl (3.4-5.0) Globulin 4.2 gm/dl (2.5-4.0) Albumin/Globulin Ratio 0.9 (0.9-2) Thyroid Stimulating Hormone (TSH) 3.540 uIu/ml (0.300-4.500) Salicylates Level < 1.7 mg/dl (2.8-20) Acetaminophen Level < 2 ug/ml (10-30) Ethyl Alcohol mg/dL < 3.0 mg/dl (0-3) Urine Color YELLOW Urine Appearance CLOUDY (CLEAR) Urine pH 6.5 (4.5-7.5) Urine Specific [place] 1.020 (1.000-1.030) Urine Protein NEG (NEG) Urine Glucose (UA) NEG (NEG) Urine Ketones NEG (NEG) Urine Occult Blood TRACE (NEG) Urine Nitrite NEG (NEG) Urine Bilirubin NEG (NEG) Urine Urobilinogen NEG (NEG) Urine Leukocyte Esterase LARGE (NEG) Urine WBC (Auto) 10-30 /hpf (0-5) Urine RBC (Auto) 0-4 /hpf (0-4) Urine Hyaline Casts (Auto) 1-5 /lpf (0-5) Urine Epithelial Cells (Auto) >30 /lpf (0-5) Urine Bacteria (Auto) 2+ (NEG) Urine Opiates Screen NEG (NEG) Urine Methadone, Qualitative NEG (NEG) Urine Barbiturates NEG (NEG) Urine Phencyclidine (PCP) Level NEG (NEG) Ur Amphetamine/Methamphetamine NEG (NEG) MDMA (Ecstasy) Screen NEG (NEG) Urine Benzodiazepines Screen NEG (NEG) Urine Cocaine Metabolite NEG (NEG) Urine Marijuana (THC) NEG (NEG) Laboratory results as stated above per my review. ED Course 0955: Previous medical records were reviewed. The patient was evaluated in room A5. A complete history and physical examination was performed. 1124: The patient has been accepted to [facility] for further management. Medical Decision Differential includes toxic ingestions, self-mutilation, suicidal ideation, suicide attempt, and depression. This is a 51-year-old female who presents to the ED with a chief complaint of depression. The patient reports feeling worthless. She is lonely. She lives alone. She currently does not work as she recently broke her right arm. She states that she has been sleeping more than usual up to 12 hours a day. She has been crying regularly. She denies being suicidal or homicidal at this time. The patient has not seen a psychiatrist. Her exam reveals a depressed affect. The patients medical evaluation was unremarkable. She will be evaluated by mental health services and admitted to . Medication Reconcilliation Current Medication List: was personally reviewed by me Blood Pressure Screening Patient's blood pressure: Normal blood pressure Impression Primary Impression: Depression Scribe Attestation The scribe's documentation has been prepared under my direction and personally reviewed by me in its entirety. I confirm that the note above accurately reflects all work, treatment, procedures, and medical decision making performed by me. Departure Information Dispostion Mental Health Acute Care Referrals Dulce Chang M.D. (MEDICAL) (PCP) Patient Instructions My [facility]
[2017-05-13 10:28] LABS: BASO % 0.6 %; BASO ABS # 0.07 K/uL (0-0.2); COMPLETE YES; EOS % 1.8 %; HEMATOCRIT 41.9 % (37-47); IG% 0.4 %; LYMPH % 22.1 %; LYMPH ABS # 2.49 K/uL (1.2-3.4); MEAN CELL VOLUME 84.6 fL (80-100); MEAN CORPUSCULAR HEMOGLOBIN 28.9 pg (25-34); MEAN CORPUSCULAR HGB CONC 34.1 g/dl (32-36); MEAN PLATELET VOLUME 9.4 fL (7.4-10.4); MONO % 5.2 %; NEUT % 69.9 %; PLATELET COUNT 311 K/uL (130-400); RED BLOOD COUNT 4.95 M/uL (4.2-5.4); WHITE BLOOD COUNT 11.25 K/uL (4.8-10.8)
[2017-05-13 10:46] LABS: BUN/CREATININE RATIO 13.6 (10-20); CALCIUM 9.7 mg/dl (8.5-10.1); CREATININE 0.99 mg/dl (0.60-1.20); POTASSIUM 3.9 mmol/L (3.5-5.1)
[2017-05-13 10:49] LABS: BENZODIAZEPINE, URINE NEG (NEG); COCAINE,URINE NEG (NEG); PHENCYCLIDINE, URINE NEG (NEG)
[2017-05-13 10:58] LABS: ALB/GLOB RATIO 0.9 (0.9-2); THYROID STIMULATING HORMONE 3.54 uIu/ml (0.300-4.500)
[2017-05-13 11:06] LABS: ACETAMINOPHEN < 2 ug/ml (10-30)
[2017-05-13] MEDS ORDERED: SODIUM CHLORIDE 0.65% NA SOLN 45 ML (OCEAN) PRN (11:30)
[2017-05-13] MEDS ORDERED: ALUMINUM/MAGNESIUM SUSP 30 ML UDC PO PRN (11:30)
[2017-05-13] MEDS ORDERED: NITROGLYCERIN 0.4 MG SL PER TAB CHARGE UT PRN (11:30)
[2017-05-13] MEDS ORDERED: ONDANSETRON 4MG OD TAB SL PRN (11:30)
[2017-05-13] MEDS ORDERED: MAGNESIUM HYDROXIDE SUSP 30 ML UDC PO PRN (11:30)
[2017-05-13] MEDS ORDERED: hydrOXYzine HCL 25 MG TAB PO PRN ×2 (11:30)
[2017-05-13] MEDS ORDERED: IBUPROFEN 600 MG TAB PO PRN (11:30)
[2017-05-13] MEDS ORDERED: BISMUTH SUBSALICYLATE PER ML OMNICELL CHARGE PO PRN (11:30)
[2017-05-13] MEDS ORDERED: FLUTICASONE PROPIONATE NA SPR 16 GM BTL NAE PRN (11:30)
[2017-05-13 11:41] LABS: URINE APPEARANCE CLOUDY (CLEAR); URINE BILIRUBIN NEG (NEG); URINE COLOR YELLOW; URINE EPITHELIAL CELL AUTO >30 /lpf (0-5); URINE NITRITE NEG (NEG); URINE PH 6.5 (4.5-7.5); UROBILINOGEN NEG (NEG)
[2017-05-13 11:43] LABS: MANUAL MICROSCOPIC REQUIRED? NO; REVIEW REQ? NO
[2017-05-13 12:04] VITALS: O2SAT 100
[2017-05-13] MEDS ORDERED: GLUCOSE 10 TABS/TUBE PO PRN (12:15)
[2017-05-13] MEDS ORDERED: DEXTROSE 50% 50 ML SYR IV PRN (12:15)
[2017-05-13] MEDS ORDERED: GLUCOSE 40% GEL 15 GM TUBE PO PRN (12:15)
[2017-05-13] MEDS ORDERED: GLUCAGON FOR INJ 1 MG VIAL SQ PRN (12:15)
[2017-05-13] MEDS ORDERED: PHARMACY GLYCEMIC MGMT CONSULT PRN (12:26)
--- NOTE | 2017-05-13 12:47 | Pharmacy Progress Note ---
Glycemic Control Intl Consult Date of Service May 13, 2017. Scope Glycemic Pharmacist consulted by Dr Rinaldi on 05/13/17 for glycemic control and to write orders per [facility] inpatient glycemic control protocol Objective Weight (Kilograms): 112.400 Accuchecks BSG (last 24hrs): Test 05/13/17 10:14 Random Glucose 190 mg/dl (70-99) Laboratory Data (last 24hrs) Test 05/13/17 10:14 Anion Gap 9.0 mmol/L BUN/Creatinine Ratio 13.6 Blood Urea Nitrogen 14 mg/dl Creatinine 0.99 mg/dl Potassium Level 3.9 mmol/L Sodium Level 137 mmol/L White Blood Count 11.25 K/uL Red Blood Count 4.95 M/uL Hemoglobin 14.3 g/dL Hematocrit 41.9 % Mean Corpuscular Volume 84.6 fL Mean Corpuscular Hemoglobin 28.9 pg Mean Corpuscular Hemoglobin Concent 34.1 g/dl Platelet Count 311 K/uL Mean Platelet Volume 9.4 fL Neutrophils (%) (Auto) 69.9 % Lymphocytes (%) (Auto) 22.1 % Monocytes (%) (Auto) 5.2 % Eosinophils (%) (Auto) 1.8 % Basophils (%) (Auto) 0.6 % Neutrophils # (Auto) 7.86 K/uL Lymphocytes # (Auto) 2.49 K/uL Monocytes # (Auto) 0.59 K/uL Eosinophils # (Auto) 0.20 K/uL Basophils # (Auto) 0.07 K/uL Recent Pertinent Medications Outpatient Anti-diabetic Regimen: * Metformin 1 gm BID * Lantus 15 units qHS * Novolog qPM per sliding scale * A1c = 7.7 % 10/04/15 The patient is currently ORDERED: * Basal insulin: Lantus 15 units every 24 hours * Correctional Insulin: None * Prandial insulin: None * Oral Agents: Metformin 1 gm BID Risk Factors for Insulin Resistance: * none Assessment & Plan ASSESSMENT: * 51 y/o female with type 2 diabetes, unknown outpatient control as A1c is from over a year ago * Admitting BSG is not horrible and without any added stressors on board, will plan to continue with the Lantus + metformin and ADD some Novolog with correctional parameters for added control * If BSGs are not controlled with this regimen, will add a carb ratio PLAN FOR INPATIENT GLYCEMIC CONTROL: * Continue Lantus 15 units qHS * Continue metformin 1 gm BID - dosed w/ meals * ADD Novolog ACHS * Goal 110-140 * CF 30 mg/dL/unit DISCHARGE RECOMMENDATIONS: * Will be dependent on A1c drawn tomorrow Thank you.
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
[2017-05-13] MEDS ORDERED: VENLAFAXINE HCL XR 37.5 MG CAPXR PO ONE (14:00)
[2017-05-13] MEDS ORDERED: ONDA4TAB46 PO (14:01)
[2017-05-13] MEDS: INSULIN ASPART 100 UNITS/ML 3 ML PEN SC SCH ×3 (14:05→22:00)
[2017-05-13 14:26] VITALS: BP 163/87; TEMP 36.5; BMI 41.2
[2017-05-13] MEDS ORDERED: INFLUENZA ADMINISTRATION CHARGE ONE (16:00)
[2017-05-13] MEDS: ACETAMINOPHEN 325 MG TAB PO PRN (16:08)
[2017-05-13] MEDS ORDERED: INFLUENZA VIRUS QUAD VACCINE 0.5 ML SYR IM. ONE (16:15)
[2017-05-13] MEDS: METFORMIN HCL 500 MG TAB PO SCH (18:11)
[2017-05-13] MEDS: SPIRONOLACTONE 25 MG TAB PO SCH (18:12)
[2017-05-13] MEDS: FUROSEMIDE 40 MG TAB PO SCH (18:40)
[2017-05-13] MEDS ORDERED: CITALOPRAM 40 MG TAB PO SCH ×2 (21:00→22:00)
[2017-05-13] MEDS ORDERED: FERROUS SULFATE 325 MG TAB PO SCH (21:00)
[2017-05-13] MEDS ORDERED: FEXOFENADINE HCL 180 MG TAB PO SCH (21:00)
[2017-05-13] MEDS: FEXOFENADINE HCL 180 MG TAB PO SCH (21:17)
[2017-05-13] MEDS: FERROUS SULFATE 325 MG TAB PO SCH (21:19)
[2017-05-13] MEDS: GABAPENTIN 600 MG TAB PO SCH (21:20)
[2017-05-13] MEDS: INSULIN GLARGINE SOLOSTAR 100 UNITS/ML 3 ML PEN SC SCH (21:27)
[2017-05-13] MEDS ORDERED: CITALOPRAM 20 MG TAB PO SCH (22:00)
[2017-05-13 22:20] VITALS: BP 153/81; PULSE 65
[2017-05-13] MEDS: SIMVASTATIN 10 MG TAB PO SCH (22:25)
[2017-05-13] MEDS: POTASSIUM CHLORIDE 10 MEQ TABCR PO SCH (22:25)
[2017-05-13] MEDS: LISINOPRIL 5 MG TAB PO SCH (22:25)
[2017-05-14 06:59] VITALS: BP_SYST 106; BP_DIAS 66; BP_DIAS 69; PULSE 62; PULSE 64; TEMP 36.6; Ht 165.1 cm; Wt 112.4 kg
[2017-05-14] MEDS: LEVOTHYROXINE 100 MCG TAB PO SCH (07:25)
[2017-05-14] MEDS: INSULIN ASPART 100 UNITS/ML 3 ML PEN SC SCH ×2 (08:00→17:42)
[2017-05-14] MEDS: METFORMIN HCL 500 MG TAB PO SCH ×2 (08:50→17:22)
[2017-05-14] MEDS: VENLAFAXINE HCL XR 75 MG CAPXR PO SCH (08:50)
--- NOTE | 2017-05-14 09:10 | Pharmacy Progress Note ---
Pharmacy Glycemic Sign Off Nt Date of Service May 14, 2017. Assessment & Plan ASSESSMENT: * Pharmacy was consulted by Dr Rinaldi on 05/13/17 for glycemic control and to write orders per [facility] inpatient glycemic control protocol. * Major changes made by pharmacy to antidiabetic regimen include: * Only the addition of Novolog ACHS instead of with dinner * Patient has been receiving/requiring 15 units of insulin per day for adequate glycemic control * BSGs ranging 104-165 mg/dl * Regimen has only required minor adjustments over the past 24hrs to achieve this level of control * Patient also refusing all Novolog doses other than with dinner, since this is what she does at home * Do not anticipate further changes in patient status that would quickly deteriorate glycemic control (i.e. patient to be NPO for upcoming procedure, steroids tapering, starting tube feedings, etc). * Please see recommendations for outpatient antidiabetic regimen below. PLAN FOR INPATIENT GLYCEMIC CONTROL: * Continue basal insulin with Lantus 15 units SQ qHS * CHANGE NovoLog per scale to dinner only since patient refusing all other doses - notified the patient's nurse and Shanda Louie about the plan * Goal range = 110-140 mg/dl * CF = 30 mg/dl/unit * None * A1c added to discharge instructions to be communicated to PCP. * Pharmacy is signing off of glycemic consult and will no longer be making adjustments to inpatient regimen. Please feel free to re-consult if needed. Thank you. DISCHARGE RECOMMENDATIONS: * A1c currently pending * As long as this is within normal limits, okay to continue with current outpatient regimen
[2017-05-14 09:28] LABS: ESTIMATED AVERAGE GLUCOSE 180 mg/dl; HA1C FLAG Normal (Normal)
--- NOTE | 2017-05-14 13:46 | Psychiatric Progress Notes ---
Progress Note Date of Service May 14, 2017. Interval History 51-year-old woman with multiple medical problems, admitted voluntarily with severe depression and suicidality. She has been under stress recently, superimposed on chronic depression. Celexa at 40 mg is not currently beneficial and due to her already elevated risk for heart disease will recommend a switch to Effexor XR 75 mg daily. Risks, benefits and alternatives reviewed including black box warnings. We will administer 37.5 mg today, increasing to 75 tomorrow. We will cut her Celexa in half to 20 mg tonight and discontinue tomorrow. We will coordinate with her current therapist the psych clinic and make a referral for her to see a psychiatric prescriber. We will attempt a family meeting if indicated. She seems very motivated for treatment and will likely do well in a structured inpatient environment. At this time, she requires inpatient mental health treatment due to the severity of her condition and the risk for self-harm if discharged. Chief Complaint "Still in a slump.". Subjective Patient was seen & assessed interval progress reviewed with Treatment Team. The patient says that she has been feeling restless, and had poor sleep. She was anxious yesterday when her meds were not here on time. She denies side effects to the initiation of Effexor other than having a [employer] this AM. She continues to feel "overwhelmed, like I'm a failure" and does not even want to talk with her son, as she feels "I have failed him". She has "always been the strong one", and sees that coming to the hospital is perceived as week. She is attending groups and identified with the idea that she uses humor to distance herself from her emotions, which she didn't realize she was doing. She has a call from her soon to be ex , he wanted to come visit here in the hospital to which she said no. he still wants to be a part of her life and she does not. She said that she would call him after discharge as a way to get out of his visit, but does not even want to call him then. Denies SI today. Review of Systems Constitutional: + fatigue ENT: No hearing loss, No unusual epistaxis, No nasal symptoms, No sore throat, No tinnitus, No dental problems, No trouble swallowing, No problem reported Respiratory: No cough, No sputum, No wheezing, No shortness of breath, No dyspnea on exertion, No dyspnea at rest, No hemoptysis, No problem reported Cardiovascular: No chest pain, No orthopnea, No PND, No edema, No claudication , No palpitations, No problem reported Abdomen: No pain, No nausea, No vomiting, No diarrhea, No constipation, No GI bleeding, No problem reported Musculoskeletal: + problem reported (rt wrist pain) Neurologic: No memory loss, No paralysis, No weakness, No numbness/tingling, No vertigo, No balance problems, No problem reported Psychiatric: + depression symptoms Integumentary: No rash, No itch, No new/changing skin lesions, No color change , No bleeding, No problem reported Sleep Information Total Hours of Sleep: 6.00 Meal Information Percent of Breakfast Consumed: 100 Percent of Lunch Consumed: 100 Percent of Dinner Consumed: 100 Mental Status Exam During interview pt is: alert and oriented, cooperative Appearance: appropriately dressed, appropriately groomed Eye contact is: good Motor behavior is: steady gait & station, no abnormal motor movements Speech: normal in rate, rhythm & volume Affect: depressed, tearful Mood is: depressed Thought process: goal directed Thought content: reality based without delusions Suicidal thought are: present, Plan: present (overdose on an sullen), Intent: denied Homicidal thoughts are: denied Hallucinations: denies auditory, denies visual Cognition: memory grossly intact, attention grossly intact, language grossly intact Intelligence estimated to be: average Insight: limited Judgement: limited Impression Adjusting to the unit, but still depressed, hopeless, feeling like a failure. Will DC celexa, keep Effexor XR 75 mg. and consider increasing to 150 mg. daily in the next few days. Encouraged to think about a phone meeting with her son to dispel her fantasies that she has disappointed him, but she does not yet feel ready for this. Plan (1) Major depressive disorder, recurrent severe without psychotic features 05/13 - Will reduce Celexa to 20 mg daily and DC tomorrow in favor of Effexor XR 37.5 mg today increasing to 75 mg tomorrow - Coordinate with current therapist at psych clinic - Refer to psych clinic for a psychiatric prescriber - Family meeting if indicated with son - Every 15 minute checks for safety - Encourage participation in group and individual counseling - Assist the patient to learn and utilize healthy coping strategies and encourage regular exercise if only 5 minutes on the bike or 4 laps around the unit - 05/14 - DC Celexa - Continue Effexor XR 75 mg. daily - Consider phone meeting with son. (2) Hypertension 05/13 - Monitor BP - Continue lisinopril at home dosing (3) Diabetes 05/13 - Consult diabetic pharmacist for assistance -BS G 4 times a day - Diabetic diet - Encourage exercise (4) Dyslipidemia 05/13 - Continue atorvastatin at home dosing (5) Wrist fracture, right 05/13 - Patient currently has a splint on. - Will use OTC's for pain management Has been reviewed with Dr. Seema Rinaldi Discharge / Aftercare Planning Primary Care Physician: Name: Dr Chang Therapist: Name: [facility] Date of Appointment: May 19, 2017 Time of Appointment: 10:00am Specialist: Name: [facility]--PT Date of Appointment: May 19, 2017 Time of Appointment: 08:00 Visit Code E&M Code: 85848 Inventory Assets Strengths: Willingness to engage in treatment, spirituality Needs: Learning additional healthy coping strategies Risk Factors Assessment : Yes /single/: Yes Higher / Fall in social status: No Health problems: Yes Mental Health Diagnoses: Yes Substance use disorders: No Previous attempt: No Family history of suicide: No Previous psychiatric stay: No Hopelessness: No Smoker: No Protective Factors Assessment Presybeterian beliefs: Yes : No Responsible for young children: No Employed: Yes Stable relationships: No Supportive family: No Good rapport with provider: Yes Data Vital Signs Last 24 Hrs: Date Time Temp Pulse Resp B/P (MAP) Pulse Ox O2 Delivery O2 Flow Rate FiO2 05/14/17 06:59 36.6 64 18 106/69 62 106/66 05/13/17 22:20 65 153/81 05/13/17 14:26 36.5 20 163/87 Meds Administered Last 24 Hrs: Meds Administered (Past 24Hrs) Medications (Trade) Dose Ordered Sig/Shante Route Start Time Stop Time Status Last Admin Dose Admin Acetaminophen (Tylenol Tab) 650 mg Q4H PRN PO 05/13/17 11:30 06/12/17 11:29 05/13/17 16:08 650 MG Furosemide (Lasix Tab) 80 mg DAILY@1700 PO 05/13/17 17:00 06/12/17 16:59 05/13/17 18:40 80 MG Gabapentin (Neurontin Tab) 600 mg HS PO 05/13/17 22:00 06/12/17 21:59 05/13/17 21:20 600 MG Insulin Glargine (Lantus Solostar Pen) 15 units HS SC 05/13/17 21:00 06/12/17 20:59 05/13/17 21:27 15 UNITS Levothyroxine Sodium (Synthroid Tab) 100 mcg DAILYBB PO 05/14/17 08:00 06/13/17 07:59 05/14/17 07:25 100 MCG Lisinopril (Zestril Tab) 5 mg HS PO 05/13/17 22:00 06/12/17 21:59 05/13/17 22:25 5 MG Metformin HCl (Glucophage Tab) 1,000 mg BIDM PO 05/13/17 17:45 06/12/17 17:44 05/14/17 08:50 1,000 MG Potassium Chloride (Klor-Con M10) 10 meq HS PO 05/13/17 22:00 06/12/17 21:59 05/13/17 22:25 10 MEQ Simvastatin (Zocor Tab) 10 mg HS PO 05/13/17 22:00 06/12/17 21:59 05/13/17 22:25 10 MG Spironolactone (Aldactone Tab) 25 mg DAILY@1700 PO 05/13/17 17:00 06/12/17 16:59 05/13/17 18:12 25 MG Ferrous Sulfate (Feosol Tab) 650 mg HS PO 05/13/17 22:00 06/12/17 21:59 05/13/17 21:19 650 MG Fexofenadine HCl (Sadia Tab) 180 mg HS PO 05/13/17 22:00 06/12/17 21:59 05/13/17 21:17 180 MG Citalopram Hydrobromide (celeXA TAB) 20 mg HS PO 05/13/17 22:00 05/14/17 09:00 DC 05/13/17 21:18 20 MG Venlafaxine HCl (effeXOR EXTENDED REL CAP) 75 mg QAM PO 05/14/17 09:00 06/13/17 08:59 05/14/17 08:50 75 MG Venlafaxine HCl (effeXOR EXTENDED REL CAP) 37.5 mg 1400 ONCE PO 05/13/17 14:00 05/13/17 14:01 DC 05/13/17 14:35 37.5 MG Lab Results Last 24 Hrs: Last 24 Hours Test 05/13/17 17:30 05/13/17 17:35 05/13/17 20:58 05/14/17 07:27 Bedside Glucose 160 mg/dl 151 mg/dl 165 mg/dl 157 mg/dl Test 05/14/17 08:20 05/14/17 12:06 Estimated Average Glucose 180 mg/dl Hemoglobin A1c 7.9 % Bedside Glucose 144 mg/dl Problem Qualifiers (1) Diabetes: Diabetes mellitus type: type 2 Diabetes mellitus complication detail: with other neurological complication Diabetes mellitus laborer marine terminal insulin use: with laborer marine terminal use (2) Wrist fracture, right: Fracture type: closed
[2017-05-14] MEDS: FUROSEMIDE 40 MG TAB PO SCH (17:22)
[2017-05-14] MEDS: SPIRONOLACTONE 25 MG TAB PO SCH (17:22)
[2017-05-14] MEDS: POTASSIUM CHLORIDE 10 MEQ TABCR PO SCH (21:09)
[2017-05-14] MEDS: FERROUS SULFATE 325 MG TAB PO SCH (21:09)
[2017-05-14] MEDS: FEXOFENADINE HCL 180 MG TAB PO SCH (21:09)
[2017-05-14] MEDS: GABAPENTIN 600 MG TAB PO SCH (21:09)
[2017-05-14] MEDS: SIMVASTATIN 10 MG TAB PO SCH (21:10)
[2017-05-14] MEDS: LISINOPRIL 5 MG TAB PO SCH (21:10)
[2017-05-14] MEDS: INSULIN GLARGINE SOLOSTAR 100 UNITS/ML 3 ML PEN SC SCH (21:11)
[2017-05-15 06:46] VITALS: BP_SYST 100; BP_SYST 99; BP_DIAS 64; BP_DIAS 68; PULSE 59; PULSE 62; TEMP 36.5
[2017-05-15] MEDS: LEVOTHYROXINE 100 MCG TAB PO SCH (07:54)
[2017-05-15] MEDS: VENLAFAXINE HCL XR 75 MG CAPXR PO SCH (07:55)
[2017-05-15] MEDS: METFORMIN HCL 500 MG TAB PO SCH ×2 (07:56→17:34)
--- NOTE | 2017-05-15 10:12 | Psychiatric Progress Notes ---
Progress Note Date of Service May 15, 2017. Interval History 51-year-old woman with multiple medical problems, admitted voluntarily with severe depression and suicidality. Chief Complaint "Staying about the same". Subjective Patient was seen & assessed interval progress reviewed with Nursing. Staff report the patient was tearful when talking about her relationship with a male friend of hers, who she would like to speak to while she is here to determine the status of their relationship. She had a visit from her father and sister last evening, and affect brightened. She continues to endorse depressed mood and feeling "down and overwhelmed." She is attending groups and participating, and says the feedback from peers has been helpful. She had difficulty sleeping last night, and received hydroxyzine at her request. Today, she states she is "about the same, well, maybe a little improvement. I still feel like I'm in that slump, feel like I need to find that equal balance." She has been going to groups and finds that helpful, and is going to try journaling today, which helped her in the past. She has been trying to contact her friend, Seth, but hasn't been able to reach him, although she's called multiple times. She wants to talk to him for reassurance that "I didn't let our friendship down, that I'm not any less of a person because I came in here. I guess I'm just looking for acceptance." She found it helpful to talk to her metal fabricating shop helper and sister yesterday, and says they told her they were proud of her for taking the step to get help. She denies SI and feels safe in the hospital, but cannot contract for safety outside the hospital and still feels depressed and overwhelmed. She knows the physical therapy exercises she needs to do for her wrist, and says she requested a band to use. Sleep Information Total Hours of Sleep: 6.75 Meal Information Percent of Breakfast Consumed: 100 Percent of Lunch Consumed: 100 Percent of Dinner Consumed: 100 Mental Status Exam During interview pt is: alert and oriented, cooperative Appearance: appropriately dressed, appropriately groomed Eye contact is: fair Motor behavior is: steady gait & station, no abnormal motor movements Speech: other (slowed, but spontaneous ) Affect: depressed, constricted Mood is: depressed Thought process: goal directed Thought content: reality based without delusions Suicidal thought are: present, Plan: present (overdose on insulin), Intent: denied Homicidal thoughts are: denied Hallucinations: denies auditory, denies visual Cognition: memory grossly intact, attention grossly intact, language grossly intact Intelligence estimated to be: average Insight: limited Judgement: limited Impression Adjusting to the unit, but still depressed, hopeless, feeling like a failure. She has been under stress recently, superimposed on chronic depression. Celexa at 40 mg is not currently beneficial and due to her already elevated risk for heart disease, she was switched to Effexor XR. Encouraged to think about a phone meeting with her son. Plan (1) Major depressive disorder, recurrent severe without psychotic features 05/13 - Will reduce Celexa to 20 mg daily and DC tomorrow in favor of Effexor XR 37.5 mg today increasing to 75 mg tomorrow - Coordinate with current therapist at psych clinic - Refer to psych clinic for a psychiatric prescriber - Family meeting if indicated with son - Every 15 minute checks for safety - Encourage participation in group and individual counseling - Assist the patient to learn and utilize healthy coping strategies and encourage regular exercise if only 5 minutes on the bike or 4 laps around the unit 05/14 - DC Celexa - Continue Effexor XR 75 mg. daily - Consider phone meeting with son. 05/15 - Continue venlafaxine XR and hydroxyzine prn. - Recommend family meeting - she wants to call her sister to see if she would participate in one. - Patient is trying to reach her friend Seth, but he is not returning her calls, which is causing increased anxiety and worsening mood. - Continue groups and therapy. Encouraged to explore options to increase socialization - is involved in her sikhism, but has few friends and feels isolated. Would like friends that she could go have coffee with. (2) Hypertension 05/13 - Monitor BP - Continue lisinopril at home dosing (3) Diabetes 05/13 - Consult diabetic pharmacist for assistance - BS G 4 times a day - Diabetic diet - Encourage exercise (4) Dyslipidemia 05/13 - Continue atorvastatin at home dosing (5) Wrist fracture, right 05/13 - Patient currently has a splint on. - Will use OTC's for pain management 05/15 - Continue with OP PT exercises for wrist while here. Discharge / Aftercare Planning Primary Care Physician: Name: Dr Chang Therapist: Name: [facility] Date of Appointment: May 19, 2017 Time of Appointment: 10:00am Specialist: Name: [facility]--PT Date of Appointment: May 19, 2017 Time of Appointment: 08:00 Visit Code E&M Code: 34602 Inventory Assets Strengths: Willingness to engage in treatment, spirituality Needs: Learning additional healthy coping strategies Risk Factors Assessment : Yes /single/: Yes Higher / Fall in social status: No Access to guns: No Health problems: Yes Mental Health Diagnoses: Yes Substance use disorders: No Previous attempt: No Family history of suicide: No Previous psychiatric stay: No Hopelessness: No Smoker: No Protective Factors Assessment Adventist beliefs: Yes : No Responsible for young children: No Employed: Yes Stable relationships: No Supportive family: No Good rapport with provider: Yes Data Vital Signs Last 24 Hrs: Date Time Temp Pulse Resp B/P (MAP) Pulse Ox O2 Delivery O2 Flow Rate FiO2 05/15/17 06:46 36.5 59 16 100/64 62 99/68 Meds Administered Last 24 Hrs: Meds Administered (Past 24Hrs) Medications (Trade) Dose Ordered Sig/Shante Route Start Time Stop Time Status Last Admin Dose Admin Acetaminophen (Tylenol Tab) 650 mg Q4H PRN PO 05/13/17 11:30 06/12/17 11:29 05/13/17 16:08 650 MG Hydroxyzine HCl (Vistaril Tab) 50 mg HSZ PRN PO 05/13/17 11:30 06/12/17 11:29 05/15/17 00:19 50 MG Furosemide (Lasix Tab) 80 mg DAILY@1700 PO 05/13/17 17:00 06/12/17 16:59 05/14/17 17:22 80 MG Gabapentin (Neurontin Tab) 600 mg HS PO 05/13/17 22:00 06/12/17 21:59 05/14/17 21:09 600 MG Insulin Glargine (Lantus Solostar Pen) 15 units HS SC 05/13/17 21:00 06/12/17 20:59 05/14/17 21:11 15 UNITS Levothyroxine Sodium (Synthroid Tab) 100 mcg DAILYBB PO 05/14/17 08:00 06/13/17 07:59 05/15/17 07:54 100 MCG Lisinopril (Zestril Tab) 5 mg HS PO 05/13/17 22:00 06/12/17 21:59 05/14/17 21:10 5 MG Metformin HCl (Glucophage Tab) 1,000 mg BIDM PO 05/13/17 17:45 06/12/17 17:44 05/15/17 07:56 1,000 MG Potassium Chloride (Klor-Con M10) 10 meq HS PO 05/13/17 22:00 06/12/17 21:59 05/14/17 21:09 10 MEQ Simvastatin (Zocor Tab) 10 mg HS PO 05/13/17 22:00 06/12/17 21:59 05/14/17 21:10 10 MG Spironolactone (Aldactone Tab) 25 mg DAILY@1700 PO 05/13/17 17:00 06/12/17 16:59 05/14/17 17:22 25 MG Ferrous Sulfate (Feosol Tab) 650 mg HS PO 05/13/17 22:00 06/12/17 21:59 05/14/17 21:09 650 MG Fexofenadine HCl (Sadia Tab) 180 mg HS PO 05/13/17 22:00 06/12/17 21:59 05/14/17 21:09 180 MG Citalopram Hydrobromide (celeXA TAB) 20 mg HS PO 05/13/17 22:00 05/14/17 09:00 DC 05/13/17 21:18 20 MG Venlafaxine HCl (effeXOR EXTENDED REL CAP) 75 mg QAM PO 05/14/17 09:00 06/13/17 08:59 05/15/17 07:55 75 MG Venlafaxine HCl (effeXOR EXTENDED REL CAP) 37.5 mg 1400 ONCE PO 05/13/17 14:00 05/13/17 14:01 DC 05/13/17 14:35 37.5 MG Influenza Virus Vaccine Quadrival (Flucelvax Quad Vaccine) 0.5 ml ONCE ONCE IM. 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
[2017-05-15] MEDS: FUROSEMIDE 40 MG TAB PO SCH (17:33)
[2017-05-15] MEDS: SPIRONOLACTONE 25 MG TAB PO SCH (17:33)
[2017-05-15] MEDS: INSULIN ASPART 100 UNITS/ML 3 ML PEN SC SCH (17:45)
[2017-05-15] MEDS: FEXOFENADINE HCL 180 MG TAB PO SCH (21:08)
[2017-05-15] MEDS: FERROUS SULFATE 325 MG TAB PO SCH (21:08)
[2017-05-15] MEDS: POTASSIUM CHLORIDE 10 MEQ TABCR PO SCH (21:08)
[2017-05-15] MEDS: SIMVASTATIN 10 MG TAB PO SCH (21:09)
[2017-05-15] MEDS: GABAPENTIN 600 MG TAB PO SCH (21:09)
[2017-05-15] MEDS: LISINOPRIL 5 MG TAB PO SCH (21:09)
[2017-05-15] MEDS: INSULIN GLARGINE SOLOSTAR 100 UNITS/ML 3 ML PEN SC SCH (21:15)
[2017-05-16 07:02] VITALS: BP_SYST 104; BP_SYST 97; BP_DIAS 63; BP_DIAS 68; PULSE 65; PULSE 66; TEMP 36.9
[2017-05-16] MEDS: LEVOTHYROXINE 100 MCG TAB PO SCH (07:54)
[2017-05-16] MEDS: METFORMIN HCL 500 MG TAB PO SCH ×2 (07:54→17:30)
[2017-05-16] MEDS: VENLAFAXINE HCL XR 75 MG CAPXR PO SCH (07:54)
--- NOTE | 2017-05-16 13:34 | Psychiatric Progress Notes ---
Progress Note Date of Service May 16, 2017. Interval History 51-year-old woman with multiple medical problems, admitted voluntarily with severe depression and suicidality. Chief Complaint "OK". Subjective Patient was seen & assessed interval progress reviewed with Treatment Team. Irma says that she is feeling a little better today based on being more comfortable here. She is engaging well with her peers both in group, and in the milieu, is able to laugh and smile. Is still setting firm limits about any meeting with her son, saying she doesn't want him to worry about her (already knows she's here) and says she will talk with him when she gets home. She then says that she is "trying to eliminate phone calls" in order not to worry people (?). She is willing to have a phone meeting with her sister Cuca who lives 2.5 hours away and she sees rarely. She denies any side effects in the cross taper of meds, saying her sleep was good last night, feeling rested today, and appetite is good as well. She is complaining about the carb counting, as it restricts what she is allowed to eat and seems resistant to changing anything she is doing. The patient has spoken with her therapist, who she had hoped would be able to come visit her but cannot. Staff report that she has repeatedly made comments about notifying her if her male friend calls or comes to see her. She described herself in community meeting as down, happy and overwhelmed. She denies SI. Review of Systems Constitutional: No fever, No chills, No sweats, No weight loss, No weakness, No fatigue, No problem reported ENT: No hearing loss, No unusual epistaxis, No nasal symptoms, No sore throat, No tinnitus, No dental problems, No trouble swallowing, No problem reported Cardiovascular: No chest pain, No orthopnea, No PND, No edema, No claudication , No palpitations, No problem reported Abdomen: No pain, No nausea, No vomiting, No diarrhea, No constipation, No GI bleeding, No problem reported Musculoskeletal: No joint pain, No muscle pain, No swelling, No calf pain, No problem reported Neurologic: No memory loss, No paralysis, No weakness, No numbness/tingling, No vertigo, No balance problems, No problem reported Psychiatric: + depression symptoms Integumentary: No rash, No itch, No new/changing skin lesions, No color change , No bleeding, No problem reported Sleep Information Total Hours of Sleep: 6.50 Meal Information Percent of Breakfast Consumed: 100 Percent of Lunch Consumed: 100 Percent of Dinner Consumed: 100 Mental Status Exam During interview pt is: alert and oriented, cooperative Appearance: appropriately dressed, appropriately groomed Eye contact is: fair Motor behavior is: steady gait & station, no abnormal motor movements Speech: normal in rate, rhythm & volume Affect: depressed, constricted Mood is: depressed Thought process: goal directed Thought content: reality based without delusions Suicidal thought are: denied Homicidal thoughts are: denied Hallucinations: denies auditory, denies visual Cognition: memory grossly intact, attention grossly intact, language grossly intact Intelligence estimated to be: average Insight: limited Judgement: limited Impression No side effects as we transition to Effexor Xr to will increase to 150 mg. daily. Staff concerned that she may be clinging to this relationship in an unhealthy way as she has expectations that he will come to see her. She does not seem interested in any way in changing her habits to benefit her chronic medical conditions. She sees that if her BSG's are reasonable, then she is doing enough. I have encouraged her to use her time in the hospital to look at adjusting her activity level and diet. Will schedule meeting with sister, although I'm not sure of what profit this will be as she doesn't see her often, but is refusing to have a meeting with her son who lives with her. Plan (1) Major depressive disorder, recurrent severe without psychotic features 05/13 - Will reduce Celexa to 20 mg daily and DC tomorrow in favor of Effexor XR 37.5 mg today increasing to 75 mg tomorrow - Coordinate with current therapist at psych clinic - Refer to psych clinic for a psychiatric prescriber - Family meeting if indicated with son - Every 15 minute checks for safety - Encourage participation in group and individual counseling - Assist the patient to learn and utilize healthy coping strategies and encourage regular exercise if only 5 minutes on the bike or 4 laps around the unit 05/14 - DC Celexa - Continue Effexor XR 75 mg. daily - Consider phone meeting with son. 05/15 - Continue venlafaxine XR and hydroxyzine prn. - Recommend family meeting - she wants to call her sister to see if she would participate in one. - Patient is trying to reach her friend Seth, but he is not returning her calls, which is causing increased anxiety and worsening mood. - Continue groups and therapy. Encouraged to explore options to increase socialization - is involved in her hindu, but has few friends and feels isolated. Would like friends that she could go have coffee with. 05/16 - Increase Effexor XR to 150 mg daily (2) Hypertension 05/13 - Monitor BP - Continue lisinopril at home dosing (3) Diabetes 05/13 - Consult diabetic pharmacist for assistance - BS G 4 times a day - Diabetic diet - Encourage exercise (4) Dyslipidemia 05/13 - Continue atorvastatin at home dosing (5) Wrist fracture, right 05/13 - Patient currently has a splint on. - Will use OTC's for pain management 05/15 - Continue with OP PT exercises for wrist while here. Discharge / Aftercare Planning Primary Care Physician: Name: Dr Chang Therapist: Name: [facility] Date of Appointment: May 19, 2017 Time of Appointment: 10:00am Specialist: Name: [facility]--PT Date of Appointment: May 19, 2017 Time of Appointment: 08:00 Visit Code E&M Code: 54415 Inventory Assets Strengths: Willingness to engage in treatment, spirituality Needs: Learning additional healthy coping strategies Risk Factors Assessment : Yes /single/: Yes Higher / Fall in social status: No Access to guns: No Health problems: Yes Mental Health Diagnoses: Yes Substance use disorders: No Previous attempt: No Family history of suicide: No Previous psychiatric stay: No Hopelessness: No Smoker: No Protective Factors Assessment Denominational beliefs: Yes : No Responsible for young children: No Employed: Yes Stable relationships: No Supportive family: No Good rapport with provider: Yes Data Vital Signs Last 24 Hrs: Date Time Temp Pulse Resp B/P (MAP) Pulse Ox O2 Delivery O2 Flow Rate FiO2 05/16/17 07:02 36.9 65 16 104/68 66 97/63 Meds Administered Last 24 Hrs: Current Inpatient Medications Medications (Trade) Dose Ordered Sig/Shante Route Start Time Stop Time Status Last Admin Dose Admin Acetaminophen (Tylenol Tab) 650 mg Q4H PRN PO 05/13/17 11:30 06/12/17 11:29 05/13/17 16:08 650 MG Bismuth Subsalicylate (Kaopectate Liqd) 15 ml PRN PRN PO 05/13/17 11:30 06/12/17 11:29 Al Hydroxide/Mg Hydroxide (Maalox Susp) 30 ml Q4H PRN PO 05/13/17 11:30 06/12/17 11:29 Magnesium Hydroxide (Milk Of Magnesia Susp) 30 ml DAILY PRN PO 05/13/17 11:30 06/12/17 11:29 Sodium Chloride ([place] Nasal [place]) PRN PRN NA 05/13/17 11:30 06/12/17 11:29 Hydroxyzine HCl (Vistaril Tab) 50 mg HSZ PRN PO 05/13/17 11:30 06/12/17 11:29 05/15/17 00:19 50 MG Hydroxyzine HCl (Vistaril Tab) 25 mg Q4H PRN PO 05/13/17 11:30 06/12/17 11:29 Fluticasone Propionate (Flonase Nasal [place]) 2 sprays DAILY PRN RAJENDRA 05/13/17 11:30 06/12/17 11:29 Furosemide (Lasix Tab) 80 mg DAILY@1700 PO 05/13/17 17:00 06/12/17 16:59 05/15/17 17:33 80 MG Gabapentin (Neurontin Tab) 600 mg HS PO 05/13/17 22:00 06/12/17 21:59 05/15/17 21:09 600 MG Ibuprofen (Motrin Tab) 600 mg Q6H PRN PO 05/13/17 11:30 06/12/17 11:29 Insulin Glargine (Lantus Solostar Pen) 15 units HS SC 05/13/17 21:00 06/12/17 20:59 05/15/17 21:15 15 UNITS Levothyroxine Sodium (Synthroid Tab) 100 mcg DAILYBB PO 05/14/17 08:00 06/13/17 07:59 05/16/17 07:54 100 MCG Lisinopril (Zestril Tab) 5 mg HS PO 05/13/17 22:00 06/12/17 21:59 05/15/17 21:09 5 MG Metformin HCl (Glucophage Tab) 1,000 mg BIDM PO 05/13/17 17:45 06/12/17 17:44 05/16/17 07:54 1,000 MG Nitroglycerin (Nitrostat Tab) 0.4 mg PRN PRN UT 05/13/17 11:30 06/12/17 11:29 Ondansetron HCl (Zofran Odt) 4 mg Q6H PRN SL 05/13/17 11:30 06/12/17 11:29 Potassium Chloride (Klor-Con M10) 10 meq HS PO 05/13/17 22:00 06/12/17 21:59 05/15/17 21:08 10 MEQ Simvastatin (Zocor Tab) 10 mg HS PO 05/13/17 22:00 06/12/17 21:59 05/15/17 21:09 10 MG Spironolactone (Aldactone Tab) 25 mg DAILY@1700 PO 05/13/17 17:00 06/12/17 16:59 05/15/17 17:33 25 MG Glucose (Glucose 40% Gel) 15-30 GRAMS 15 GRAMS... UD PRN PO 05/13/17 12:15 06/12/17 12:14 Glucose (Glucose Chew Tab) 4-8 Tablets 4 Tabl... UD PRN PO 05/13/17 12:15 06/12/17 12:14 Dextrose (Dextrose 50% 50ML Syringe) 25-50ML OF 50% DW IV FOR... UD PRN IV 05/13/17 12:15 06/12/17 12:14 Glucagon (Glucagon Inj) 1 mg UD PRN SQ 05/13/17 12:15 06/12/17 12:14 Ferrous Sulfate (Feosol Tab) 650 mg HS PO 05/13/17 22:00 06/12/17 21:59 05/15/17 21:08 650 MG Fexofenadine HCl (Sadia Tab) 180 mg HS PO 05/13/17 22:00 06/12/17 21:59 05/15/17 21:08 180 MG Venlafaxine HCl (effeXOR EXTENDED REL CAP) 75 mg QAM PO 05/14/17 09:00 06/13/17 08:59 05/16/17 07:54 75 MG Insulin Aspart (novoLOG ASPART) SLIDING SCALE QDD SC 05/14/17 17:45 06/13/17 17:44 Lab Results Last 24 Hrs: Last 24 Hours Test 05/15/17 17:24 05/15/17 20:59 05/16/17 07:11 05/16/17 12:31 Bedside Glucose 153 mg/dl 168 mg/dl 122 mg/dl 95 mg/dl Problem Qualifiers (1) Diabetes: Diabetes mellitus type: type 2 Diabetes mellitus complication detail: with other neurological complication Diabetes mellitus halfway insulin use: with halfway use (2) Wrist fracture, right: Fracture type: closed
[2017-05-16] MEDS: INSULIN ASPART 100 UNITS/ML 3 ML PEN SC SCH (17:07)
[2017-05-16] MEDS: FUROSEMIDE 40 MG TAB PO SCH (17:30)
[2017-05-16] MEDS: SPIRONOLACTONE 25 MG TAB PO SCH (17:31)
[2017-05-16] MEDS: FERROUS SULFATE 325 MG TAB PO SCH (20:50)
[2017-05-16] MEDS: POTASSIUM CHLORIDE 10 MEQ TABCR PO SCH (20:50)
[2017-05-16] MEDS: FEXOFENADINE HCL 180 MG TAB PO SCH (20:50)
[2017-05-16] MEDS: GABAPENTIN 600 MG TAB PO SCH (20:50)
[2017-05-16] MEDS: SIMVASTATIN 10 MG TAB PO SCH (20:51)
[2017-05-16] MEDS: LISINOPRIL 5 MG TAB PO SCH (20:51)
[2017-05-16] MEDS: INSULIN GLARGINE SOLOSTAR 100 UNITS/ML 3 ML PEN SC SCH (21:01)
[2017-05-17 06:38] VITALS: BP_SYST 130; BP_SYST 135; BP_DIAS 73; BP_DIAS 76; PULSE 71; PULSE 82; TEMP 36.8
[2017-05-17] MEDS: LEVOTHYROXINE 100 MCG TAB PO SCH (08:07)
[2017-05-17] MEDS: ACETAMINOPHEN 325 MG TAB PO PRN (08:10)
[2017-05-17] MEDS: VENLAFAXINE HCL XR 150 MG CAPXR PO SCH (08:30)
[2017-05-17] MEDS: METFORMIN HCL 500 MG TAB PO SCH ×2 (08:30→17:31)
--- NOTE | 2017-05-17 10:05 | Psychiatric Progress Notes ---
Progress Note Date of Service May 17, 2017. Interval History 51-year-old woman with multiple medical problems, admitted voluntarily with severe depression and suicidality. Chief Complaint "Down, depressed, concerned.". Subjective Patient was seen & assessed interval progress reviewed with Treatment Team. The patient begins by asking to have her iron DC'd due to constipation. Reviewed normal H&H. She spoke with her father by phone last evening and he is hosting a family get together on friday the and Irma feels that he is not taking her needs into account. She will not be able to travel there and back and still be available to work and she feels that he takes everyone else's schedules into account but hers. She is also still struggling with staying in the room where her mother . The other factor is that there can be upwards of 40 people at her father's house, which is a lot of chaos and Irma doesn't feel like she is up for that right now. She is hopeful that another scenario will come available ie her friend Seth inviting her to join his family, or going to [facility] to spend the holiday with a friend. She does not think that she can talk with her father about her feelings of being slighted, saying that she doesn't have a close relationship with him, but says that she is going to talk with her sister Cuca about it to see if she can talk with her father. She denies SI. Wrist is "achey" with the change to rainy weather. She has an ortho appt on Fri to determine if she can return to work, which she anticipates she will. Sleep Information Total Hours of Sleep: 8.00 Meal Information Percent of Breakfast Consumed: 100 Percent of Lunch Consumed: 100 Percent of Dinner Consumed: 100 Mental Status Exam During interview pt is: alert and oriented, cooperative Appearance: appropriately dressed, appropriately groomed Eye contact is: fair Motor behavior is: steady gait & station, no abnormal motor movements Speech: normal in rate, rhythm & volume Affect: depressed, constricted Mood is: depressed Thought process: goal directed Thought content: reality based without delusions Suicidal thought are: denied Homicidal thoughts are: denied Hallucinations: denies auditory, denies visual Cognition: memory grossly intact, attention grossly intact, language grossly intact Intelligence estimated to be: average Insight: limited Judgement: limited Impression Struggling with relationship issues in her family as the thanksgiving holiday approaches, and still holding out hope that her male friend will invite her to be part of his celebration. No side effects to meds an so will continue Effexor XR 150 mg. daily. She is making slow progress with her mood, enjoying the company of her peers. If progress continues could consider discharge early in the week. Plan (1) Major depressive disorder, recurrent severe without psychotic features 05/13 - Will reduce Celexa to 20 mg daily and DC tomorrow in favor of Effexor XR 37.5 mg today increasing to 75 mg tomorrow - Coordinate with current therapist at psych clinic - Refer to psych clinic for a psychiatric prescriber - Family meeting if indicated with son - Every 15 minute checks for safety - Encourage participation in group and individual counseling - Assist the patient to learn and utilize healthy coping strategies and encourage regular exercise if only 5 minutes on the bike or 4 laps around the unit 05/14 - DC Celexa - Continue Effexor XR 75 mg. daily - Consider phone meeting with son. 05/15 - Continue venlafaxine XR and hydroxyzine prn. - Recommend family meeting - she wants to call her sister to see if she would participate in one. - Patient is trying to reach her friend Seth, but he is not returning her calls, which is causing increased anxiety and worsening mood. - Continue groups and therapy. Encouraged to explore options to increase socialization - is involved in her latter-day, but has few friends and feels isolated. Would like friends that she could go have coffee with. 05/16 - Increase Effexor XR to 150 mg daily 05/17 - Continue current meds and plan - Encourage the patient to practice assertive communications, not relying on others to talk for her (2) Hypertension 05/13 - Monitor BP - Continue lisinopril at home dosing (3) Diabetes 05/13 - Consult diabetic pharmacist for assistance - BS G 4 times a day - Diabetic diet - Encourage exercise (4) Dyslipidemia 05/13 - Continue atorvastatin at home dosing (5) Wrist fracture, right 05/13 - Patient currently has a splint on. - Will use OTC's for pain management 05/15 - Continue with OP PT exercises for wrist while here. Discharge / Aftercare Planning Primary Care Physician: Name: Dr Chang Therapist: Name: [facility] Date of Appointment: May 19, 2017 Time of Appointment: 10:00am Specialist: Name: [facility]--PT Date of Appointment: May 19, 2017 Time of Appointment: 08:00 Visit Code E&M Code: 39658 Inventory Assets Strengths: Willingness to engage in treatment, spirituality Needs: Learning additional healthy coping strategies Risk Factors Assessment : Yes /single/: Yes Higher / Fall in social status: No Access to guns: No Health problems: Yes Mental Health Diagnoses: Yes Substance use disorders: No Previous attempt: No Family history of suicide: No Previous psychiatric stay: No Hopelessness: No Smoker: No Protective Factors Assessment Congregation beliefs: Yes : No Responsible for young children: No Employed: Yes Stable relationships: No Supportive family: No Good rapport with provider: Yes Data Vital Signs Last 24 Hrs: Date Time Temp Pulse Resp B/P (MAP) Pulse Ox O2 Delivery O2 Flow Rate FiO2 05/17/17 06:38 36.8 71 20 130/73 82 135/76 Meds Administered Last 24 Hrs: Meds Administered (Past 24Hrs) Medications (Trade) Dose Ordered Sig/Shante Route Start Time Stop Time Status Last Admin Dose Admin Venlafaxine HCl (effeXOR EXTENDED REL CAP) 150 mg QAM PO 05/17/17 09:00 06/16/17 08:59 05/17/17 08:30 150 MG Lab Results Last 24 Hrs: Last 24 Hours Test 05/16/17 12:31 05/16/17 16:49 05/16/17 20:41 05/17/17 06:33 Bedside Glucose 95 mg/dl 114 mg/dl 180 mg/dl 123 mg/dl Problem Qualifiers (1) Diabetes: Diabetes mellitus type: type 2 Diabetes mellitus complication detail: with other neurological complication Diabetes mellitus termite control representative insulin use: with intermediate use (2) Wrist fracture, right: Fracture type: closed
--- NOTE | 2017-05-17 10:22 | Psych Management Progress Note ---
Psychiatry Miscellaneous Date of Service: May 17, 2017. Patient seen, MS assessed. Rates mood as 4/10. Encouraged cooperation with care and treatment plan as outlined by AUTOMATION DRIVER. Notes depression but plans to journal.
[2017-05-17] MEDS: FUROSEMIDE 40 MG TAB PO SCH (17:31)
[2017-05-17] MEDS: SPIRONOLACTONE 25 MG TAB PO SCH (17:31)
[2017-05-17] MEDS: INSULIN ASPART 100 UNITS/ML 3 ML PEN SC SCH (17:37)
[2017-05-17] MEDS: SIMVASTATIN 10 MG TAB PO SCH (21:18)
[2017-05-17] MEDS: LISINOPRIL 5 MG TAB PO SCH (21:18)
[2017-05-17] MEDS: FEXOFENADINE HCL 180 MG TAB PO SCH (21:19)
[2017-05-17] MEDS: POTASSIUM CHLORIDE 10 MEQ TABCR PO SCH (21:19)
[2017-05-17] MEDS: GABAPENTIN 600 MG TAB PO SCH (21:19)
[2017-05-17] MEDS: INSULIN GLARGINE SOLOSTAR 100 UNITS/ML 3 ML PEN SC SCH (21:22)
[2017-05-18 07:01] VITALS: BP_SYST 107; BP_SYST 108; BP_DIAS 71; BP_DIAS 72; PULSE 62; PULSE 66; TEMP 36.8
[2017-05-18] MEDS: LEVOTHYROXINE 100 MCG TAB PO SCH (07:51)
[2017-05-18] MEDS: METFORMIN HCL 500 MG TAB PO SCH ×2 (07:51→17:29)
[2017-05-18] MEDS: VENLAFAXINE HCL XR 150 MG CAPXR PO SCH (07:51)
--- NOTE | 2017-05-18 11:24 | Psychiatric Progress Notes ---
Progress Note Date of Service May 18, 2017. Interval History 51-year-old woman with multiple medical problems, admitted voluntarily with severe depression and suicidality. Chief Complaint "Tired. ". Subjective Patient was seen & assessed interval progress reviewed with Treatment Team. The patient is feeling tired today, was taking a nap before the next group. Her focus today is on her friend Seth. She is awaiting a visit from him today, and says she will be disappointed if he doesn't come. She will call her around 1 pm to see if he plans to visit. She would like to write a letter to him, apologizing for things she has said to him that may have seemed inappropriate or demeaning. She is also hopeful that her hvac sheet metal installer will visit today. She had poor sleep last night, laying awake thinking about communicating with Seth. She describes her mood as "alright", but concerned about today's visit. She denies SI. She was able to move her bowels after iron was DC'd. She says that she does not feel ready to leavae the hospital yet, feeling that she has more work to do "to feel better about myself". She recognizes that when she felt depressed before, she blamed in on her , but now sees that she has her own issues to work on. Review of Systems Constitutional: + fatigue ENT: No hearing loss, No unusual epistaxis, No nasal symptoms, No sore throat, No tinnitus, No dental problems, No trouble swallowing, No problem reported Respiratory: No cough, No sputum, No wheezing, No shortness of breath, No dyspnea on exertion, No dyspnea at rest, No hemoptysis, No problem reported Cardiovascular: No chest pain, No orthopnea, No PND, No edema, No claudication , No palpitations, No problem reported Abdomen: No pain, No nausea, No vomiting, No diarrhea, No constipation, No GI bleeding, No problem reported Musculoskeletal: No joint pain, No muscle pain, No swelling, No calf pain, No problem reported Neurologic: No memory loss, No paralysis, No weakness, No numbness/tingling, No vertigo, No balance problems, No problem reported Psychiatric: + depression symptoms, + anxiety, + insomnia Integumentary: No rash, No itch, No new/changing skin lesions, No color change , No bleeding, No problem reported Sleep Information Total Hours of Sleep: 6.00 Meal Information Percent of Breakfast Consumed: 100 Percent of Lunch Consumed: 100 Percent of Dinner Consumed: 100 Mental Status Exam During interview pt is: alert and oriented, cooperative Appearance: appropriately dressed, appropriately groomed Eye contact is: fair Motor behavior is: steady gait & station, no abnormal motor movements Speech: normal in rate, rhythm & volume Affect: depressed, constricted Mood is: depressed Thought process: goal directed Thought content: reality based without delusions Suicidal thought are: denied Homicidal thoughts are: denied Hallucinations: denies auditory, denies visual Cognition: memory grossly intact, attention grossly intact, language grossly intact Intelligence estimated to be: average Insight: limited Judgement: limited Impression Focused on her male friend Seth, and putting a lot of hope into a visit from him today. This seems central to her depression. Although she says she is OK with him not wanting to move their relationship beyond being friends, she is putting a lot of herself into thinking, talking about him and now hoping he comes to see her. She remains very set in her ways, unwilling to try new things. Will continue Effexor XR 150 mg. daily Plan (1) Major depressive disorder, recurrent severe without psychotic features 05/13 - Will reduce Celexa to 20 mg daily and DC tomorrow in favor of Effexor XR 37.5 mg today increasing to 75 mg tomorrow - Coordinate with current therapist at psych clinic - Refer to psych clinic for a psychiatric prescriber - Family meeting if indicated with son - Every 15 minute checks for safety - Encourage participation in group and individual counseling - Assist the patient to learn and utilize healthy coping strategies and encourage regular exercise if only 5 minutes on the bike or 4 laps around the unit 05/14 - DC Celexa - Continue Effexor XR 75 mg. daily - Consider phone meeting with son. 05/15 - Continue venlafaxine XR and hydroxyzine prn. - Recommend family meeting - she wants to call her sister to see if she would participate in one. - Patient is trying to reach her friend Seth, but he is not returning her calls, which is causing increased anxiety and worsening mood. - Continue groups and therapy. Encouraged to explore options to increase socialization - is involved in her jain, but has few friends and feels isolated. Would like friends that she could go have coffee with. 05/16 - Increase Effexor XR to 150 mg daily 05/17 - Continue current meds and plan - Encourage the patient to practice assertive communications, not relying on others to talk for her (2) Hypertension 05/13 - Monitor BP - Continue lisinopril at home dosing (3) Diabetes 05/13 - Consult diabetic pharmacist for assistance - BS G 4 times a day - Diabetic diet - Encourage exercise (4) Dyslipidemia 05/13 - Continue atorvastatin at home dosing (5) Wrist fracture, right 05/13 - Patient currently has a splint on. - Will use OTC's for pain management 05/15 - Continue with OP PT exercises for wrist while here. Discharge / Aftercare Planning Primary Care Physician: Name: Dr Chang Therapist: Name: [facility] Date of Appointment: May 19, 2017 Time of Appointment: 10:00am Specialist: Name: [facility]--PT Date of Appointment: May 19, 2017 Time of Appointment: 08:00 Visit Code E&M Code: 60794 Inventory Assets Strengths: Willingness to engage in treatment, spirituality Needs: Learning additional healthy coping strategies Risk Factors Assessment : Yes /single/: Yes Higher / Fall in social status: No Access to guns: No Health problems: Yes Mental Health Diagnoses: Yes Substance use disorders: No Previous attempt: No Family history of suicide: No Previous psychiatric stay: No Hopelessness: No Smoker: No Protective Factors Assessment Islam beliefs: Yes : No Responsible for young children: No Employed: Yes Stable relationships: No Supportive family: No Good rapport with provider: Yes Data Vital Signs Last 24 Hrs: Date Time Temp Pulse Resp B/P (MAP) Pulse Ox O2 Delivery O2 Flow Rate FiO2 05/18/17 07:01 36.8 66 16 107/71 62 108/72 Meds Administered Last 24 Hrs: Meds Administered (Past 24Hrs) Medications (Trade) Dose Ordered Sig/Shante Route Start Time Stop Time Status Last Admin Dose Admin Venlafaxine HCl (effeXOR EXTENDED REL CAP) 150 mg QAM PO 05/17/17 09:00 06/16/17 08:59 05/18/17 07:51 150 MG Lab Results Last 24 Hrs: Last 24 Hours Test 05/17/17 12:16 05/17/17 17:21 Bedside Glucose 141 mg/dl 149 mg/dl Problem Qualifiers (1) Diabetes: Diabetes mellitus type: type 2 Diabetes mellitus complication detail: with other neurological complication Diabetes mellitus adjunct faculty for medical terminology insulin use: with adjunct faculty for medical terminology use (2) Wrist fracture, right: Fracture type: closed
[2017-05-18 12:19] LABS: URINE APPEARANCE CLEAR (CLEAR); URINE BILIRUBIN NEG (NEG); URINE COLOR YELLOW; URINE EPITHELIAL CELL AUTO >30 /lpf (0-5); URINE NITRITE NEG (NEG); URINE SPECIFIC GRAVITY 1.018 (1.000-1.030); UROBILINOGEN NEG (NEG); ZZUR CULT IF INDIC CLEAN CATCH NO
[2017-05-18 12:22] LABS: MANUAL MICROSCOPIC REQUIRED? NO; REVIEW REQ? NO
[2017-05-18] MEDS: SPIRONOLACTONE 25 MG TAB PO SCH (17:28)
[2017-05-18] MEDS: FUROSEMIDE 40 MG TAB PO SCH (17:29)
[2017-05-18] MEDS: INSULIN ASPART 100 UNITS/ML 3 ML PEN SC SCH (17:53)
[2017-05-18] MEDS: FEXOFENADINE HCL 180 MG TAB PO SCH (21:25)
[2017-05-18] MEDS: GABAPENTIN 600 MG TAB PO SCH (21:25)
[2017-05-18] MEDS: POTASSIUM CHLORIDE 10 MEQ TABCR PO SCH (21:25)
[2017-05-18] MEDS: LISINOPRIL 5 MG TAB PO SCH (21:26)
[2017-05-18] MEDS: SIMVASTATIN 10 MG TAB PO SCH (21:26)
[2017-05-18] MEDS: INSULIN GLARGINE SOLOSTAR 100 UNITS/ML 3 ML PEN SC SCH (21:32)
[2017-05-19] MEDS: ACETAMINOPHEN 325 MG TAB PO PRN (03:36)
[2017-05-19 06:57] VITALS: BP_SYST 101; BP_SYST 105; BP_DIAS 67; BP_DIAS 68; PULSE 62; PULSE 65; TEMP 36.8
[2017-05-19] MEDS: LEVOTHYROXINE 100 MCG TAB PO SCH (07:44)
[2017-05-19] MEDS: VENLAFAXINE HCL XR 150 MG CAPXR PO SCH (08:29)
[2017-05-19] MEDS: METFORMIN HCL 500 MG TAB PO SCH ×2 (08:29→17:25)
--- NOTE | 2017-05-19 12:25 | Psychiatric Progress Notes ---
Progress Note Date of Service May 19, 2017. Interval History 51-year-old woman with multiple medical problems, admitted voluntarily with severe depression and suicidality. Chief Complaint "Pretty good". Subjective Patient was seen & assessed interval progress reviewed with Treatment Team. Patient reports improved mood, denies SI, and feels treatment is helping. She asked about her UA and was informed it was a contaminated sample. She says yesterday was "a breakthrough day for me," as she recognized that she was having "distorted thoughts, I thought that my friendship was going to be obsolete, that I ruined it because I came to the hospital, but that wasn't reality." She is making discharge plans, but doesn't feel ready to go today, saying she wants to make sure that she is ready to go, worries that she will be lonely and overwhelmed if she goes home right now, and talked to her sister who is supportive and will be picking her up and helping her run errands. She denies side effects to medications. Sleep Information Total Hours of Sleep: 5.00 Meal Information Percent of Breakfast Consumed: 100 Percent of Lunch Consumed: 100 Percent of Dinner Consumed: 100 Mental Status Exam During interview pt is: alert and oriented, cooperative Appearance: appropriately dressed, appropriately groomed Eye contact is: fair Motor behavior is: steady gait & station, no abnormal motor movements Speech: normal in rate, rhythm & volume Affect: other (reactivve, brighter) Mood is: other ("better") Thought process: goal directed Thought content: reality based without delusions Suicidal thought are: denied Homicidal thoughts are: denied Hallucinations: denies auditory, denies visual Cognition: memory grossly intact, attention grossly intact, language grossly intact Intelligence estimated to be: average Insight: limited Judgement: limited Impression Focused on her male friend Seth, and worried she will feel lonely when she returns home. Relationship concerns seem central to her depression. She remains very set in her ways, unwilling to try new things. Will continue Effexor XR 150 mg. daily Plan (1) Major depressive disorder, recurrent severe without psychotic features 05/13 - Will reduce Celexa to 20 mg daily and DC tomorrow in favor of Effexor XR 37.5 mg today increasing to 75 mg tomorrow - Coordinate with current therapist at psych clinic - Refer to psych clinic for a psychiatric prescriber - Family meeting if indicated with son - Every 15 minute checks for safety - Encourage participation in group and individual counseling - Assist the patient to learn and utilize healthy coping strategies and encourage regular exercise if only 5 minutes on the bike or 4 laps around the unit 05/14 - DC Celexa - Continue Effexor XR 75 mg. daily - Consider phone meeting with son. 05/15 - Continue venlafaxine XR and hydroxyzine prn. - Recommend family meeting - she wants to call her sister to see if she would participate in one. - Patient is trying to reach her friend Seth, but he is not returning her calls, which is causing increased anxiety and worsening mood. - Continue groups and therapy. Encouraged to explore options to increase socialization - is involved in her christianity, but has few friends and feels isolated. Would like friends that she could go have coffee with. 05/16 - Increase Effexor XR to 150 mg daily 05/17 - Continue current meds and plan - Encourage the patient to practice assertive communications, not relying on others to talk for her 05/19 - Consider axis II component, as demonstrates borderline, dependent and avoidant traits here. - Working on discharge safety plan. (2) Hypertension 05/13 - Monitor BP - Continue lisinopril at home dosing (3) Diabetes 05/13 - Consult diabetic pharmacist for assistance - BS G 4 times a day - Diabetic diet - Encourage exercise (4) Dyslipidemia 05/13 - Continue atorvastatin at home dosing (5) Wrist fracture, right 05/13 - Patient currently has a splint on. - Will use OTC's for pain management 05/15 - Continue with OP PT exercises for wrist while here. Discharge / Aftercare Planning Primary Care Physician: Name: Dr Chang Psychiatrist: Name: [facility] Appointment Notes: Call for appointmetn Therapist: Name: [facility] Date of Appointment: May 19, 2017 Time of Appointment: 10:00am Specialist: Name: [facility]--[facility] Date of Appointment: May 19, 2017 Time of Appointment: 08:00 Visit Code E&M Code: 71059 Inventory Assets Strengths: Willingness to engage in treatment, spirituality Needs: Learning additional healthy coping strategies Risk Factors Assessment : Yes /single/: Yes Higher / Fall in social status: No Access to guns: No Health problems: Yes Mental Health Diagnoses: Yes Substance use disorders: No Previous attempt: No Family history of suicide: No Previous psychiatric stay: No Hopelessness: No Smoker: No Protective Factors Assessment Jehovah'S Witness beliefs: Yes : No Responsible for young children: No Employed: Yes Stable relationships: No Supportive family: No Good rapport with provider: Yes Data Vital Signs Last 24 Hrs: Date Time Temp Pulse Resp B/P (MAP) Pulse Ox O2 Delivery O2 Flow Rate FiO2 05/19/17 06:57 36.8 62 18 105/68 65 101/67 Lab Results Last 24 Hrs: Last 24 Hours Test 05/18/17 12:20 05/18/17 17:23 05/18/17 20:45 Bedside Glucose 134 mg/dl 172 mg/dl 191 mg/dl Problem Qualifiers (1) Diabetes: Diabetes mellitus type: type 2 Diabetes mellitus complication detail: with other neurological complication Diabetes mellitus mdm developer insulin use: with mdm developer use (2) Wrist fracture, right: Fracture type: closed
[2017-05-19] MEDS: INSULIN ASPART 100 UNITS/ML 3 ML PEN SC SCH (17:24)
[2017-05-19] MEDS: SPIRONOLACTONE 25 MG TAB PO SCH (17:25)
[2017-05-19] MEDS: FUROSEMIDE 40 MG TAB PO SCH (17:25)
[2017-05-19] MEDS: POTASSIUM CHLORIDE 10 MEQ TABCR PO SCH (21:02)
[2017-05-19] MEDS: FEXOFENADINE HCL 180 MG TAB PO SCH (21:02)
[2017-05-19] MEDS: SIMVASTATIN 10 MG TAB PO SCH (21:02)
[2017-05-19] MEDS: LISINOPRIL 5 MG TAB PO SCH (21:02)
[2017-05-19] MEDS: GABAPENTIN 600 MG TAB PO SCH (21:03)
[2017-05-19] MEDS: INSULIN GLARGINE SOLOSTAR 100 UNITS/ML 3 ML PEN SC SCH (21:04)
[2017-05-20] MEDS: ACETAMINOPHEN 325 MG TAB PO PRN (03:22)
[2017-05-20 07:00] VITALS: BP_SYST 108; BP_SYST 110; BP_DIAS 70; BP_DIAS 71; PULSE 65; PULSE 67; TEMP 36.4
[2017-05-20] MEDS: LEVOTHYROXINE 100 MCG TAB PO SCH (07:45)
[2017-05-20] MEDS: VENLAFAXINE HCL XR 150 MG CAPXR PO SCH (07:46)
[2017-05-20] MEDS: METFORMIN HCL 500 MG TAB PO SCH (07:46)
[2017-05-20] MEDS ORDERED: EFFSR150 PO (08:49)
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
== END 2017-05-20 10:51 | disposition home or self-care (01) | DRG 885 ==
LOC: C.EDB 09:10 → C.MHU 11:27
PROVIDERS: ADMIT Psychiatry & Neurology Psychiatry; ATTEND Psychiatry & Neurology Psychiatry
DX: F33.3 Major depressive disorder, recurrent, severe with psychotic symptoms (principal); E66.9 Obesity, unspecified; E87.5 Hyperkalemia; I10 Essential (primary) hypertension; Z81.8 Family history of other mental and behavioral disorders; S62.101A Fracture of unspecified carpal bone, right wrist, initial encounter for closed fracture; E11.49 Type 2 diabetes mellitus with other diabetic neurological complication; Z82.49 Family history of ischemic heart disease and other diseases of the circulatory system; Z83.3 Family history of diabetes mellitus; Z79.4 Long term (current) use of insulin; X58.XXXA Exposure to other specified factors, initial encounter

== ENCOUNTER → 2017-05-21 | Outpatient (CLI) | payer OTHER ==
[~2017-05-21] MED LIST changes: -CITA40TA4 PO; -CLB100 PO; +EFFSR150 PO; -OMEP40CA41 PO; -ONDA4TAB10 SL; +ONDA4TAB46 PO
== END | disposition home or self-care (01) ==
LOC: C.RDSM 11:00
PROVIDERS: ATTEND Orthopaedic Surgery Sports Medicine
DX: S52.571D Other intraarticular fracture of lower end of right radius, subsequent encounter for closed fracture with routine healing (principal); X58.XXXD Exposure to other specified factors, subsequent encounter

== ENCOUNTER → 2017-06-18 | Outpatient (CLI) | payer OTHER, MEDICARE ==
[~2017-06-18] MED LIST changes: +ASPI81TA28 PO; +LMC25 PO; +VENL150C56 PO
== END | disposition home or self-care (01) ==
LOC: C.RDSM 13:36
PROVIDERS: ATTEND Orthopaedic Surgery Sports Medicine
DX: S52.571D Other intraarticular fracture of lower end of right radius, subsequent encounter for closed fracture with routine healing (principal); X58.XXXD Exposure to other specified factors, subsequent encounter

== ENCOUNTER → 2017-07-29 | Outpatient (CLI) | payer OTHER, MEDICARE ==
[~2017-07-29] MED LIST changes: -ASPI81TA28 PO; -LMC25 PO; -VENL150C56 PO
== END | disposition home or self-care (01) ==
LOC: C.RDSM 07:45
PROVIDERS: ATTEND Orthopaedic Surgery Sports Medicine
DX: S52.571D Other intraarticular fracture of lower end of right radius, subsequent encounter for closed fracture with routine healing (principal); X58.XXXD Exposure to other specified factors, subsequent encounter

== ENCOUNTER 2017-08-27 12:47 | Emergency (ER) | payer MEDICARE, OTHER ==
[~2017-08-27] VITALS: Ht 165.1 cm; Wt 109.0 kg
[2017-08-27 13:01] VITALS: TEMP 36.7; Ht 165.1 cm; Wt 109.0 kg
[2017-08-27] MEDS ORDERED: IBUPROFEN 600 MG TAB PO STA (13:11)
[2017-08-27 13:53] LABS: BASO % 0.4 %; BASO ABS # 0.04 K/uL (0-0.2); EOS % 1.5 %; EOS ABS # 0.16 K/uL (0-0.5); HEMATOCRIT 38.2 % (37-47); HEMOGLOBIN 12.9 g/dL (12.0-16.0); IG# 0.03 K/uL (0.00-0.02); LYMPH % 24.6 %; LYMPH ABS # 2.64 K/uL (1.2-3.4); MEAN CELL VOLUME 84.5 fL (80-100); MEAN CORPUSCULAR HEMOGLOBIN 28.5 pg (25-34); MEAN CORPUSCULAR HGB CONC 33.8 g/dl (32-36); MEAN PLATELET VOLUME 9.3 fL (7.4-10.4); MONO % 7.3 %; MONO ABS # 0.78 K/uL (0.11-0.59); NEUT % 65.9 %; NEUT ABS # 7.07 K/uL (1.4-6.5); PLATELET COUNT 283 K/uL (130-400); RED CELL DISTRIBUTION WIDTH CV 13.4 % (11.5-14.5); RED CELL DISTRIBUTION WIDTH SD 41.2 fL (36.4-46.3); WHITE BLOOD COUNT 10.72 K/uL (4.8-10.8)
[2017-08-27 14:23] LABS: CALCIUM 8.7 mg/dl (8.5-10.1); CREATININE 0.83 mg/dl (0.60-1.20)
[2017-08-27] MEDS ORDERED: OPTIRAY 320 IV PRN (14:30)
--- NOTE | 2017-08-27 15:21 | DIAGNOSTIC IMAGING REPORT ---
SOFT TISSUE NECK WITH CLINICAL HISTORY: Right jaw pain and swelling. COMPARISON STUDY: No previous studies for comparison. TECHNIQUE: Axial images of the neck were obtained following intravenous injection of 93 cc Optiray 320 IV. Sagittal and coronal reconstructions were viewed. FINDINGS: Visualized portions of the intracranial contents are unremarkable. Orbits are unremarkable. There is moderate mucosal thickening of the right sphenoid sinus. The right sphenoethmoidal recess is occluded. A few prominent right-sided cervical lymph nodes are noted. Index right level 2 node measures 1.1 cm in short axis diameter. There is no abscess within the neck. Epiglottis is normal. Lung apices are clear. There are no suspicious osseous lesions. There are multiple dental amalgams. Mastoid air cells are clear. There is extensive plaque within the proximal right internal carotid artery. The degree of stenosis is difficult to assess on this non-CTA exam, particularly given the extensive calcified atherosclerotic plaque. IMPRESSION: 1. No abscess within the neck. No significant infiltration to suggest cellulitis. 2. Mildly enlarged right-sided cervical lymph nodes which are indeterminate but may be reactive. 3. Moderate mucosal thickening of the right sphenoid sinus. 4. Extensive atherosclerotic plaque within the proximal right internal carotid artery. Degree of stenosis difficult to assess on this non-CTA exam but approximate 50% stenosis. Electronically signed by: Wesly Woodson M.D. 08/27/2017 3:20 PM Dictated Date/Time: 08/27/2017 3:03 PM
--- NOTE | 2017-08-27 15:48 | EMERGENCY ROOM VISIT NOTE ---
History First contact with patient: 13:04 Chief Complaint: FACIAL PAIN/INJURY Stated Complaint: SIDE OF FACE IS SWOLLEN,EAR HURTS,SLIGHTLY DIZZY History of Present Illness The patient is a 52 year old female who presents to the Emergency Room via private vehicle with complaints of "side of face is swollen, ear hurts, slightly dizzy". The patient states that today while at work she developed right-sided facial pain overlying the right TMJ region, as well as noticed some mild facial swelling. She rates the overall pain as a 9/10. When the patient initially hit she felt dizzy however this was only brief. She denies any dizziness with positions of her neck. She denies any fevers, chills, nausea or vomiting. There is no headache. Review of Systems A complete 6-point Review of Systems was discussed with the patient, with pertinent positives and negatives listed in the History of Present Illness. All remaining Review of Systems questions can be considered negative unless otherwise specified. Past Medical/Surgical History Medical Problems: (1) Class 3 obesity due to excess calories in adult (2) Diabetes (3) Dyslipidemia (4) Hypertension (5) Hyperthyroidism (6) Wrist fracture, right Family History Cancer Diabetes mellitus FH: neuropathy Gallbladder disease Heart disease Hypertension Kidney stones Social History Smoking Status: Never Smoker Alcohol Use: none Marital Status: Housing Status: lives with family Occupation Status: employed Current/Historical Medications Scheduled Ferrous Sulfate (Ferrous Sulfate), 2 TABS PO HS Fexofenadine Hcl (Sadia), 180 MG PO HS Furosemide (Lasix), 80 MG PO HS Gabapentin (Gabapentin), 600 MG PO HS Insulin Aspart (Novolog), 1 DOSE SQ QPM Insulin Glargine (Lantus), 15 UNITS SC HS Levothyroxine Sodium (Synthroid), 100 MCG PO QAM Lisinopril (Zestril), 5 MG PO HS Metformin Hcl (Glucophage), 1,000 MG PO BID Nitroglycerin (Nitrostat), 0.4 MG UT PRN Ondansetron Hcl (Zofran), 4 MG PO Q6 Potassium Chloride (Micro-K Ext Rel), 10 MEQ PO HS Simvastatin (Zocor), 10 MG PO HS Spironolactone (Aldactone), 25 MG PO HS Scheduled PRN Acetaminophen (Tylenol), 1,000 MG PO Q6H PRN for Pain Fluticasone Propionate (Nasal) (Flonase Allergy Relief), 2 SPRAYS RAJENDRA DAILY PRN for PRN Physical Exam Vital Signs Date Time Temp Pulse Resp B/P (MAP) Pulse Ox O2 Delivery O2 Flow Rate FiO2 08/27/17 15:56 75 16 158/94 97 08/27/17 13:01 36.7 79 16 152/86 99 Physical Exam VITAL SIGNS - Vital signs and nursing notes were reviewed. Stable. Afebrile. GENERAL -52-year-old female appearing her stated age who is in no acute distress. Communicates well with provider and answers questions appropriately. SKIN - Without rashes. No particular meningeal rash. There is very minimal/ nearly unapproachable swelling overlying the right TMJ region. HEAD - NC/AT. EYES - Sclera anicteric. EARS - No deformities of external structures noted on gross examination bilaterally. No pain elicited with palpation of the tragus bilaterally. External auditory canals without discharge or otorrhea. Tympanic membranes pearly yu without retraction or bulging. No fluid or purulent material visualized behind the TM. Handle of malleus, umbo, cone of light, pars tensa/ flaccid all easily visualized. MOUTH/OROPHARYNX - Without perioral cyanosis. Buccal mucosa pink and moist and without leukoplakia. Tongue midline with equal elevation of palate bilaterally. No tonsillar hypertrophy, erythema, or exudates noted. Fair dentition noted. NECK - Neck with FROM. Supple to palpation. no lymphadenopathy noted. No nuchal rigidity. EXTREMITIES - No clubbing or peripheral cyanosis. No pretibial edema present. + 5/5 strength noted in UE/LE bilaterally. NEUROLOGIC - Cranial nerves II through XII grossly intact. Medical Decision & Procedures ER Provider Diagnostic Interpretation: SOFT TISSUE NECK WITH CLINICAL HISTORY: Right jaw pain and swelling. COMPARISON STUDY: No previous studies for comparison. TECHNIQUE: Axial images of the neck were obtained following intravenous injection of 93 cc Optiray 320 IV. Sagittal and coronal reconstructions were viewed. FINDINGS: Visualized portions of the intracranial contents are unremarkable. Orbits are unremarkable. There is moderate mucosal thickening of the right sphenoid sinus. The right sphenoethmoidal recess is occluded. A few prominent right-sided cervical lymph nodes are noted. Index right level 2 node measures 1.1 cm in short axis diameter. There is no abscess within the neck. Epiglottis is normal. Lung apices are clear. There are no suspicious osseous lesions. There are multiple dental amalgams. Mastoid air cells are clear. There is extensive plaque within the proximal right internal carotid artery. The degree of stenosis is difficult to assess on this non-CTA exam, particularly given the extensive calcified atherosclerotic plaque. IMPRESSION: 1. No abscess within the neck. No significant infiltration to suggest cellulitis. 2. Mildly enlarged right-sided cervical lymph nodes which are indeterminate but may be reactive. 3. Moderate mucosal thickening of the right sphenoid sinus. 4. Extensive atherosclerotic plaque within the proximal right internal carotid artery. Degree of stenosis difficult to assess on this non-CTA exam but approximate 50% stenosis. Electronically signed by: Wesly Woodson M.D. 08/27/2017 3:20 PM Dictated Date/Time: 08/27/2017 3:03 PM Laboratory Results 08/27/17 12:25 Red Blood Count 4.52, Mean Corpuscular Volume 84.5, Mean Corpuscular Hemoglobin 28.5, Mean Corpuscular Hemoglobin Concent 33.8, Mean Platelet Volume 9.3, Neutrophils (%) (Auto) 65.9, Lymphocytes (%) (Auto) 24.6, Monocytes (%) (Auto) 7.3, Eosinophils (%) (Auto) 1.5, Basophils (%) (Auto) 0.4, Neutrophils # (Auto) 7.07, Lymphocytes # (Auto) 2.64, Monocytes # (Auto) 0.78, Eosinophils # (Auto) 0.16, Basophils # (Auto) 0.04 08/27/17 12:25 Test 08/27/17 12:25 White Blood Count 10.72 K/uL (4.8-10.8) Red Blood Count 4.52 M/uL (4.2-5.4) Hemoglobin 12.9 g/dL (12.0-16.0) Hematocrit 38.2 % (37-47) Mean Corpuscular Volume 84.5 fL (80-100) Mean Corpuscular Hemoglobin 28.5 pg (25-34) Mean Corpuscular Hemoglobin Concent 33.8 g/dl (32-36) Platelet Count 283 K/uL (130-400) Mean Platelet Volume 9.3 fL (7.4-10.4) Neutrophils (%) (Auto) 65.9 % Lymphocytes (%) (Auto) 24.6 % Monocytes (%) (Auto) 7.3 % Eosinophils (%) (Auto) 1.5 % Basophils (%) (Auto) 0.4 % Neutrophils # (Auto) 7.07 K/uL (1.4-6.5) Lymphocytes # (Auto) 2.64 K/uL (1.2-3.4) Monocytes # (Auto) 0.78 K/uL (0.11-0.59) Eosinophils # (Auto) 0.16 K/uL (0-0.5) Basophils # (Auto) 0.04 K/uL (0-0.2) RDW Standard Deviation 41.2 fL (36.4-46.3) RDW Coefficient of Variation 13.4 % (11.5-14.5) Immature Granulocyte % (Auto) 0.3 % Immature Granulocyte # (Auto) 0.03 K/uL (0.00-0.02) Anion Gap 7.0 mmol/L (3-11) Est Creatinine Clear Calc Drug Dose 98.5 ml/min Estimated GFR () 94.6 Estimated GFR (Non- 81.6 BUN/Creatinine Ratio 22.0 (10-20) Calcium Level 8.7 mg/dl (8.5-10.1) Medications Administered Medications (Trade) Dose Ordered Sig/Shante Route Start Time Stop Time Status Last Admin Dose Admin Ibuprofen (Motrin Tab) 600 mg NOW STAT PO 08/27/17 13:11 08/27/17 13:12 DC 08/27/17 13:21 600 MG Medical Decision Patient was seen and evaluated as above. She presents to us today with pain over the right TMJ. It is worse with trying to open her mouth. I suspect this likely to be inflammation of the TMJ. She is nontoxic on exam. Swelling is nearly unapproachable. Benefits versus risk of obtaining CT scan of her neck was discussed, and decision was made to scan to rule out any potential underlying emergent infectious process. IV access was initiated. CBC reveals no leukocytosis or anemia. Metabolic panel reveals hyperglycemia which she was informed upon. CT scan of the neck reveals essentially no emergent process however she does have carotid stenosis. This was discussed in detail with the patient. She is to call her family doctor to schedule follow-up. There is no carotid bruit on exam, and there is no dizziness associated with range of motion of the patient's neck. I believe she is stable for outpatient follow- up. She was given ibuprofen here but is to use Tylenol home as she is already on Eddie inhibitor, ARB and is diabetic. The patient was educated upon management , had questions answered prior to discharge, and was discharged home in good condition. Case was discussed with the attending physician In the evaluation and treatment of this patient the following differential diagnoses were entertained: TMJ pain, abscess, infectious process, Bassam angina , among others. It is important that I do not suspect the patient's dizziness to be secondary to her carotid stenosis. Impression Primary Impression: Temporomandibular joint pain Departure Information Dispostion Home / Self-Care Condition GOOD Referrals Dulce Chang M.D. (MEDICAL) (PCP) Patient Instructions My [facility] Additional Instructions You have been treated in the Emergency Department for Right sided head pain, I believe this is your Right jaw joint. For pain control, you can use the following [id number] medicines (if >12 yo): - Regular strength (325mg/tab) Tylenol (acetaminophen) 2 tabs every 4-6 hours as needed. Do not exceed 12 tablets in a 24 hour period. Avoid taking more than 3 grams (3000 mg) of Tylenol per day. This includes any other sources of acetaminophen you may take on a regular basis. You should schedule a follow-up appointment as soon as possible with your with your family doctor for further evaluation and treatment of your R jaw pain and your carotid artery stenosis/partial blockage. Dr. Chang should have a copy today's results. Return to the Emergency Department if your current symptoms worsen despite treatment course outlined above, or if you develop any of the following symptoms : intractable pain despite aforementioned treatment course, visual disturbances , loss of vision, unilateral weakness or facial drooping, slurring of speech, loss of coordination, or loss of consciousness.
[2017-08-27 15:56] VITALS: BP 158/94; PULSE 75; O2SAT 97
== END 2017-08-27 15:57 | disposition home or self-care (01) ==
LOC: C.EDB 12:49 → C.EDD 15:57
DX: M26.621 Arthralgia of right temporomandibular joint (principal); E11.9 Type 2 diabetes mellitus without complications; E78.5 Hyperlipidemia, unspecified; I10 Essential (primary) hypertension; E05.90 Thyrotoxicosis, unspecified without thyrotoxic crisis or storm; Z80.9 Family history of malignant neoplasm, unspecified; Z83.3 Family history of diabetes mellitus; Z83.79 Family history of other diseases of the digestive system; Z82.49 Family history of ischemic heart disease and other diseases of the circulatory system; Z84.1 Family history of disorders of kidney and ureter; Z79.4 Long term (current) use of insulin; Z79.899 Other long term (current) drug therapy

== ENCOUNTER → 2017-10-21 | Outpatient (CLI) | payer OTHER ==
[~2017-10-21] MED LIST changes: -EFFSR150 PO; -IBUP600T44 PO
== END | disposition home or self-care (01) ==
LOC: C.LAB 08:52
PROVIDERS: ATTEND Psychiatry & Neurology Psychiatry
DX: N95.1 Menopausal and female climacteric states (principal)

== ENCOUNTER 2017-11-06 19:12 | Emergency (ER) | payer OTHER ==
[~2017-11-06] VITALS: Ht 165.1 cm; Wt 114.0 kg
[2017-11-06 19:20] VITALS: TEMP 36.5; Ht 165.1 cm; Wt 114.0 kg
[2017-11-06 20:14] LABS: BASO % 0.4 %; BASO ABS # 0.05 K/uL (0-0.2); EOS % 1.4 %; EOS ABS # 0.16 K/uL (0-0.5); HEMOGLOBIN 12.6 g/dL (12.0-16.0); IG# 0.02 K/uL (0.00-0.02); LYMPH % 31.4 %; LYMPH ABS # 3.54 K/uL (1.2-3.4); MEAN CELL VOLUME 83.5 fL (80-100); MEAN CORPUSCULAR HEMOGLOBIN 27.7 pg (25-34); MEAN CORPUSCULAR HGB CONC 33.2 g/dl (32-36); MEAN PLATELET VOLUME 8.9 fL (7.4-10.4); MONO ABS # 0.56 K/uL (0.11-0.59); NEUT % 61.6 %; NEUT ABS # 6.93 K/uL (1.4-6.5); PLATELET COUNT 297 K/uL (130-400); RED CELL DISTRIBUTION WIDTH CV 13.7 % (11.5-14.5); RED CELL DISTRIBUTION WIDTH SD 41.5 fL (36.4-46.3); WHITE BLOOD COUNT 11.26 K/uL (4.8-10.8)
[2017-11-06 20:34] LABS: ALBUMIN 3.7 gm/dl (3.4-5.0); ALT/SGPT 23 U/L (12-78); AST/SGOT 18 U/L (15-37); BLOOD UREA NITROGEN 19 mg/dl (7-18); CALCIUM 8.6 mg/dl (8.5-10.1); CARBON DIOXIDE 27 mmol/L (21-32); CREATININE 0.85 mg/dl (0.60-1.20); GLUCOSE 166 mg/dl (70-99); POTASSIUM 3.8 mmol/L (3.5-5.1); SODIUM 137 mmol/L (136-145)
--- NOTE | 2017-11-06 20:40 | EMERGENCY ROOM VISIT NOTE ---
History Report prepared by Popeye: Irma Dhillon Under the Supervision of: Dr. Leander Peres M.D. First contact with patient: 19:25 Chief Complaint: MENTAL HEALTH EVALUATION Stated Complaint: MHID, History of Present Illness The patient is a 52 year old white female with a past medical history of diabetes, dyslipidemia, hypertension, hyperthyroidism, suicidal ideation who presents to the ED with a cc of an episode suicidal thoughts by overdose earlier today. Positive headache, SOB, intermittent chest pain, leg swelling. Negative thoughts of hurting others, hallucination, cough, fever, nausea, vomiting. Patient denies any alcohol, tobacco, or drug use. Source of History: patient Onset: earlier today Position: other (mental health) Quality: other (suicidal thoughts) Timing: other (episodic) Associated Symptoms: + headache, + chest pain, + SOB, No fevers, No cough, No nausea, No vomiting Note: Pt reports leg swelling. Review of Systems See HPI for pertinent positives and negatives. A total of ten systems were reviewed and were otherwise negative. Past Medical & Surgical Medical Problems: (1) Class 3 obesity due to excess calories in adult (2) Diabetes (3) Dyslipidemia (4) Hypertension (5) Hyperthyroidism (6) Wrist fracture, right Family History Cancer Diabetes mellitus FH: neuropathy Gallbladder disease Heart disease Hypertension Kidney stones Social History Smoking Status: Never Smoker Alcohol Use: none Marital Status: Housing Status: lives with family Occupation Status: employed Current/Historical Medications Scheduled Fexofenadine Hcl (Sadia), 180 MG PO HS Furosemide (Lasix), 80 MG PO HS Gabapentin (Gabapentin), 600 MG PO HS Insulin Aspart (Novolog), 1 DOSE SQ QPM Insulin Glargine (Lantus), 15 UNITS SC HS Levothyroxine Sodium (Synthroid), 100 MCG PO QAM Lisinopril (Zestril), 5 MG PO HS Metformin Hcl (Glucophage), 1,000 MG PO BID Potassium Chloride (Micro-K Ext Rel), 10 MEQ PO HS Simvastatin (Zocor), 10 MG PO HS Spironolactone (Aldactone), 25 MG PO HS Venlafaxine Hcl (Effexor Extended Rel), 300 MG PO QAM Scheduled PRN Acetaminophen (Tylenol), 1,000 MG PO Q6H PRN for Pain Nitroglycerin (Nitrostat), 0.4 MG UT UD PRN for Chest Pain Allergies Coded Allergies: Penicillins (Unverified Allergy, Mild, HAPPENED A CHILD - PT UNSURE REACTION, 08/27/17) - "NO REAL REACTION WITH SMALL DOSES" Sulfa Drugs (Unverified Allergy, Mild, HAPPENED A CHILD - PT UNSURE REACTION, 08/27/17) Codeine (Unverified Adverse Reaction, Mild, FAINTING, DIZZINESS, N/V, FEVER, 11/06/17) Morphine (Verified Adverse Reaction, Unknown, GI UPSET, FEVER, 11/06/17) Physical Exam Vital Signs Date Time Temp Pulse Resp B/P (MAP) Pulse Ox O2 Delivery O2 Flow Rate FiO2 11/06/17 22:09 76 111/53 100 Room Air 11/06/17 19:20 36.5 88 156/96 100 Room Air Physical Exam GENERAL: Awake, alert, well-appearing, NAD, obese. HENT: Normocephalic, atraumatic. EYES: Normal conjunctiva. Sclera non-icteric. PERRL. No anisocoria. NECK: Supple. No nuchal rigidity. FROM. RESPIRATORY: CTAB, no rhonchi, wheezing, crackles CARDIAC: RRR, no MRG ABDOMEN: Soft, NTND, BS+ MSK: No chest wall TTP, 1+ b/l LE edema. NEURO: GCS 15, CN 2-12 intact, moves all 4s on command SKIN: No rash or jaundice noted. PSYCH: No SI, no HI, no AVH. Medical Decision & Procedures Laboratory Results 11/06/17 19:53 Red Blood Count 4.55, Mean Corpuscular Volume 83.5, Mean Corpuscular Hemoglobin 27.7, Mean Corpuscular Hemoglobin Concent 33.2, Mean Platelet Volume 8.9, Neutrophils (%) (Auto) 61.6, Lymphocytes (%) (Auto) 31.4, Monocytes (%) (Auto) 5.0, Eosinophils (%) (Auto) 1.4, Basophils (%) (Auto) 0.4, Neutrophils # (Auto) 6.93, Lymphocytes # (Auto) 3.54, Monocytes # (Auto) 0.56, Eosinophils # (Auto) 0.16, Basophils # (Auto) 0.05 11/06/17 19:53 Test 11/06/17 19:53 11/06/17 20:04 11/06/17 20:26 11/07/17 00:37 White Blood Count 11.26 K/uL (4.8-10.8) Red Blood Count 4.55 M/uL (4.2-5.4) Hemoglobin 12.6 g/dL (12.0-16.0) Hematocrit 38.0 % (37-47) Mean Corpuscular Volume 83.5 fL (80-100) Mean Corpuscular Hemoglobin 27.7 pg (25-34) Mean Corpuscular Hemoglobin Concent 33.2 g/dl (32-36) Platelet Count 297 K/uL (130-400) Mean Platelet Volume 8.9 fL (7.4-10.4) Neutrophils (%) (Auto) 61.6 % Lymphocytes (%) (Auto) 31.4 % Monocytes (%) (Auto) 5.0 % Eosinophils (%) (Auto) 1.4 % Basophils (%) (Auto) 0.4 % Neutrophils # (Auto) 6.93 K/uL (1.4-6.5) Lymphocytes # (Auto) 3.54 K/uL (1.2-3.4) Monocytes # (Auto) 0.56 K/uL (0.11-0.59) Eosinophils # (Auto) 0.16 K/uL (0-0.5) Basophils # (Auto) 0.05 K/uL (0-0.2) RDW Standard Deviation 41.5 fL (36.4-46.3) RDW Coefficient of Variation 13.7 % (11.5-14.5) Immature Granulocyte % (Auto) 0.2 % Immature Granulocyte # (Auto) 0.02 K/uL (0.00-0.02) Anion Gap 7.0 mmol/L (3-11) Est Creatinine Clear Calc Drug Dose 98.6 ml/min Estimated GFR () 92.0 Estimated GFR (Non- 79.3 BUN/Creatinine Ratio 22.7 (10-20) Calcium Level 8.6 mg/dl (8.5-10.1) Total Bilirubin 0.3 mg/dl (0.2-1) Direct Bilirubin 0.1 mg/dl (0-0.2) Aspartate Amino Transf (AST/SGOT) 18 U/L (15-37) Alanine Aminotransferase (ALT/SGPT) 23 U/L (12-78) Alkaline Phosphatase 90 U/L (45-117) Troponin I < 0.015 ng/ml (0-0.045) Total Protein 8.0 gm/dl (6.4-8.2) Albumin 3.7 gm/dl (3.4-5.0) Thyroid Stimulating Hormone (TSH) 0.043 uIu/ml (0.300-4.500) Salicylates Level < 1.7 mg/dl (2.8-20) Acetaminophen Level < 2 ug/ml (10-30) Ethyl Alcohol mg/dL < 3.0 mg/dl (0-3) Human Chorionic Gonadotropin, Qual NEG (NEG) Urine Color YELLOW Urine Appearance CLEAR (CLEAR) Urine pH 6.5 (4.5-7.5) Urine Specific [place] 1.025 (1.000-1.030) Urine Protein NEG (NEG) Urine Glucose (UA) NEG (NEG) Urine Ketones NEG (NEG) Urine Occult Blood NEG (NEG) Urine Nitrite NEG (NEG) Urine Bilirubin NEG (NEG) Urine Urobilinogen NEG (NEG) Urine Leukocyte Esterase MODERATE (NEG) Urine WBC (Auto) 10-30 /hpf (0-5) Urine RBC (Auto) 0-4 /hpf (0-4) Urine Hyaline Casts (Auto) 1-5 /lpf (0-5) Urine Epithelial Cells (Auto) >30 /lpf (0-5) Urine Bacteria (Auto) 1+ (NEG) Urine Opiates Screen NEG (NEG) Urine Methadone, Qualitative NEG (NEG) Urine Barbiturates NEG (NEG) Urine Phencyclidine (PCP) Level NEG (NEG) Ur Amphetamine/Methamphetamine NEG (NEG) MDMA (Ecstasy) Screen NEG (NEG) Urine Benzodiazepines Screen NEG (NEG) Urine Cocaine Metabolite NEG (NEG) Urine Marijuana (THC) NEG (NEG) Bedside Glucose 188 mg/dl (70-90) Laboratory results reviewed by me Medications Administered Medications (Trade) Dose Ordered Sig/Shante Route Start Time Stop Time Status Last Admin Dose Admin Fexofenadine HCl (Sadia Tab) 180 mg HS PO 11/07/17 00:00 12/07/17 00:00 11/07/17 00:41 180 MG Lisinopril (Zestril Tab) 5 mg HS PO 11/07/17 00:00 12/07/17 00:00 11/07/17 00:41 5 MG Simvastatin (Zocor Tab) 10 mg HS PO 11/07/17 00:00 12/07/17 00:00 11/07/17 00:41 10 MG Spironolactone (Aldactone Tab) 25 mg HS PO 11/07/17 00:00 12/07/17 00:00 11/07/17 00:41 25 MG Gabapentin (Neurontin Tab) 600 mg HS PO 11/07/17 00:00 12/07/17 00:00 11/07/17 00:41 600 MG Furosemide (Lasix Tab) 80 mg HS PO 11/07/17 00:00 12/07/17 00:00 11/07/17 00:41 80 MG Insulin Glargine (Lantus Solostar Pen) 15 units HS SC 11/07/17 00:00 12/07/17 00:00 11/07/17 00:41 15 UNITS ED Course 2011: The patient was evaluated in room A7. A complete history and physical exam was performed. Medical Decision Nursing notes reviewed. Ancillary studies and prior records reviewed. The patient is a 52 year old white female with a past medical history of diabetes, dyslipidemia, hypertension, hyperthyroidism, suicidal ideation who presents to the ED with a cc of an episode of suicidal ideation earlier today. Differential diagnosis: Etiologies such as mood disorder, infection, hypoglycemia, electrolyte abnormalities, cardiac sources, intracerebral event, toxicologic, neurologic, as well as others were entertained. Seen and evaluated at bedside. Patient w/ complaints of SI earlier today. Had described prior thoughts in past of overdose by using too much insulin. Labs and UA ordered along w/ EKG and trop. Trop neg. Medically cleared. Patient pending acceptance to voluntary inpatient facility in AM. UA likely possibly contaminated. Denies urinary symptoms. Will not trx at this time. Scheduled meds ordered. Patient signed out to evening provider. Pending further placement and dispo in AM. Medication Reconcilliation Current Medication List: was personally reviewed by me Blood Pressure Screening Patient's blood pressure: Normal blood pressure Blood pressure disposition: Did not require urgent referral Impression Primary Impression: Depression Scribe Attestation The scribe's documentation has been prepared under my direction and personally reviewed by me in its entirety. I confirm that the note above accurately reflects all work, treatment, procedures, and medical decision making performed by me. Departure Information Dispostion Mental Health Acute Care Referrals Dulce Chang M.D. (MEDICAL) (PCP) Patient Instructions My [facility] Problem Qualifiers Primary Impression: Depression Depression Type: unspecified Qualified Codes: F32.9 - Major depressive disorder, single episode, unspecified
[2017-11-06 20:45] LABS: ALKALINE PHOSPHATASE 90 U/L (45-117)
[2017-11-06] MEDS ORDERED: ACETAMINOPHEN 325 MG TAB PO STA (20:50)
[2017-11-06] MEDS ORDERED: VENL150C56 PO (21:28)
--- NOTE | 2017-11-06 22:44 | EMERGENCY ROOM VISIT NOTE ---
ED Visit Note First contact with patient: 22:42 The patient was taken in signout from Dr. Peres at the change of shift. Please see that note for details. The patient was pending voluntary psych placement. Bed search is currently on hold due to availability. Current plan is to monitor overnight and consult with [facility]. The patient was declined by [facility]. Additional bed search is underway. The patient is currently resting comfortably. Her case was signed out to Dr. Ivey at the change of shift.
[2017-11-06] MEDS ORDERED: GLUCAGON FOR INJ 1 MG VIAL IM PRN (23:30)
[2017-11-06] MEDS ORDERED: GLUCOSE 10 TABS/TUBE PO PRN (23:30)
[2017-11-06] MEDS ORDERED: CARBOHYDRATES FOR HYPOGLYCEMIA PO PRN (23:30)
[2017-11-06] MEDS ORDERED: GLUCOSE 40% GEL 15 GM TUBE PO PRN (23:30)
[2017-11-06] MEDS ORDERED: DEXTROSE 50% 50 ML SYR IV PRN (23:30)
[2017-11-07] MEDS ORDERED: FUROSEMIDE 80 MG TAB PO SCH
[2017-11-07] MEDS ORDERED: INSULIN GLARGINE SOLOSTAR 100 UNITS/ML 3 ML PEN SC SCH
[2017-11-07] MEDS ORDERED: SIMVASTATIN 10 MG TAB PO SCH
[2017-11-07] MEDS ORDERED: LISINOPRIL 5 MG TAB PO SCH
[2017-11-07] MEDS ORDERED: FEXOFENADINE HCL 180 MG TAB PO SCH
[2017-11-07] MEDS ORDERED: GABAPENTIN 600 MG TAB PO SCH
[2017-11-07] MEDS ORDERED: SPIRONOLACTONE 25 MG TAB PO SCH
--- NOTE | 2017-11-07 05:01 | EMERGENCY ROOM VISIT NOTE ---
ED Visit Note First contact with patient: 01:10 The case was signed out to me at change of shift awaiting bed placement. The patient is willing to sign herself in voluntarily. She was just declined at [facility]. Staff from [facility] will continue the bed search. 0230: The bed search has been suspended at this time. It will be resumed in the morning. Morning medications have been ordered by Dr. Peres. 0505: The patient is still resting at this time. The case will be signed out to Dr. Presley at change of shift in the morning.
[2017-11-07] MEDS ORDERED: NURSING VERBAL MED ORDER ONE (06:45)
[2017-11-07] MEDS ORDERED: LEVOTHYROXINE 100 MCG TAB PO SCH ×2 (08:00)
[2017-11-07] MEDS ORDERED: VENLAFAXINE HCL XR 150 MG CAPXR PO SCH ×2 (09:00)
[2017-11-07] MEDS ORDERED: METFORMIN HCL 500 MG TAB PO SCH (09:00)
--- NOTE | 2017-11-07 10:47 | EMERGENCY ROOM VISIT NOTE ---
ED Visit Note First contact with patient: 06:44 I assumed care at the change of shift. Dr. Ivey had been the physician prior to me. The patient presents with suicidal thoughts. She was a voluntary patient. She had been felt medically clear for a psychiatric evaluation. Work for bed placement was underway. The patient has been accepted at [facility]. She will be a voluntary admission to their psychiatric facility. They did asked that an EKG be performed. The EKG shows a normal sinus rhythm with a rate of 69. There is no acute ischemia, no ST elevation, no PVCs or ectopy. Patient has been cooperative, no issues while under my care. The orders for transfer were written.
[2017-11-07 12:54] VITALS: BP 125/65; PULSE 72; O2SAT 98
== END 2017-11-07 12:50 ==
LOC: EDBD 19:12 → C.EDA 19:13
DX: F32.9 Major depressive disorder, single episode, unspecified (principal); R06.02 Shortness of breath; E11.9 Type 2 diabetes mellitus without complications; E78.5 Hyperlipidemia, unspecified; I10 Essential (primary) hypertension; Z88.0 Allergy status to penicillin; Z88.2 Allergy status to sulfonamides; Z88.5 Allergy status to narcotic agent; Z83.3 Family history of diabetes mellitus; Z82.49 Family history of ischemic heart disease and other diseases of the circulatory system; Z84.1 Family history of disorders of kidney and ureter; Z82.0 Family history of epilepsy and other diseases of the nervous system; Z79.4 Long term (current) use of insulin; Z79.84 Long term (current) use of oral hypoglycemic drugs; Z79.899 Other long term (current) drug therapy